=== PATIENT | male | born 1965 | race Caucasian/White ===

== ENCOUNTER 2018-01-19 15:48 | Inpatient (IN) ==
[2018-01-19] MEDS ORDERED: Ondansetron 4 MG/2 ML VIAL IVP PRN (20:41)
[2018-01-19] MEDS ORDERED: OXYCODONE Oral CONC 10 MG/0.5 ML ORAL.SYG SL PRN (20:43)
[2018-01-19] MEDS ORDERED: *HR* Promethazine 25 MG/ML VIAL IVP PRN (20:44)
[2018-01-19] MEDS: OXYCODONE Oral CONC 10 MG/0.5 ML ORAL.SYG SL PRN (20:53)
[2018-01-19] MEDS: 0.9 % Sodium Chloride 1,000 ML IVC SCH (20:56)
[2018-01-19] MEDS ORDERED: *HR* Metoprolol 5 MG/5 ML VIAL IVP PRN (23:02)
[2018-01-19] MEDS ORDERED: Naloxone 0.4 MG/ML INJ IVP PRN (23:02)
[2018-01-19] MEDS: cefOXitin 1,000 MG in Water for inj. (sterile) 20 ML 10 ML IVPB SCH (23:53)
[2018-01-20] MEDS: OXYCODONE Oral CONC 10 MG/0.5 ML ORAL.SYG SL PRN ×3 (01:01→14:17)
[2018-01-20] MEDS: 0.9 % Sodium Chloride 1,000 ML IVC SCH ×2 (04:53→15:29)
[2018-01-20] MEDS: Pantoprazole 40 MG VIAL IVP SCH (05:37)
[2018-01-20 06:01] LABS: Basophils % 0.3 %; Eosinophils # 0.1 K/mcL (0.0-0.6); Eosinophils % 0.8 %; Hematocrit 42.3 % (37.5-50.1); Immature Granulocytes % 0.3 % (0-4); Lymphocytes % 11.4 %; Mean Corpuscular HGB Conc 33.1 g/dL (31.6-35.5); Mean Corpuscular Hemoglobin 28.1 pg (28.0-33.3); Mean Corpuscular Volume 84.9 fL (83.0-100.0); Mean Platelet Volume 10.7 fL (9.4-12.4); Monocytes # 0.7 K/mcL (0.0-1.3); Monocytes % 7.7 %; Neutrophils # 7.2 K/mcL (1.6-8.9); Platelet Count 276 K/mcL (140-400); Red Blood Count 4.98 M/mcL (4.19-5.50); Red Cell Distribution Width 14.1 % (11.5-14.5); Segmented Neutrophils % 79.5 %
[2018-01-20 06:32] LABS: Alanine Aminotransferase 460 Units/L (7-52); Albumin 4.1 g/dL (3.5-5.7); Albumin/Globulin Ratio 1.5 (1.1-2.2); Alkaline Phosphatase 166 Units/L (34-104); Aspartate Amino Transferase 286 Units/L (13-39); BUN/Creatinine Ratio 13 (6-26); Bilirubin,Direct 0.4 mg/dL (0.0-0.2); Bilirubin,Indirect 1.3 mg/dL (0.0-1.2); Bilirubin,Total 1.7 mg/dL (0.3-1.0); Blood Urea Nitrogen 12 mg/dL (6-20); Calcium 9.1 mg/dL (8.6-10.3); Carbon Dioxide 27 mEq/L (23-29); Chloride 104 mEq/L (98-107); Glucose 155 mg/dL (70-105); Lipase 872 Units/L (11-82); Osmolality,Calculated 295 (280-300); Potassium 4.7 mEq/L (3.5-5.1); Sodium 141 mEq/L (136-145); Total Protein 6.8 g/dL (6.4-8.9); eGFR For African Americans > 60 (> 60); eGFR For Non-African Americans > 60 (> 60)
[2018-01-20 06:33] LABS: Globulin 2.7 g/dL (2.4-3.5)
[2018-01-20 07:33] LABS: Amylase 475 Units/L (29-103)
[2018-01-20 08:01] LABS: Chol/HDL Ratio 3.7 (0-4.9); Cholesterol 171 mg/dL (< 200); HDL Cholesterol 46 mg/dL (40-59); LDL Cholesterol,Calculated 99 mg/dL (0-99); Triglycerides 129 mg/dL (< 150)
[2018-01-20] MEDS: cefOXitin 1,000 MG in Water for inj. (sterile) 20 ML 10 ML IVPB SCH ×2 (08:28→15:29)
--- NOTE | 2018-01-20 09:42 | General Surg History&Physical ---
<Francisco JavierLincoln - Last Filed: 01/20/18 16:58> Date of Encounter: 01/20/18 Time of Encounter: 06:50 Assessment and Plan (1) Abdominal pain Current Visit: Yes Status: Acute MRCP shows evidence of acute pancreatits. Patient has a BISAP score of 0 for pancreatitis mortality. Patient will be on clear liquid diets for now, but will be changed to NPO diet tonight. Plan for possible cholecystectomy tomorrow. - NPO tonight. - Continue cefoxitin for antibiotic prophylaxis for cholelithiasis. - Serial abdominal exams. - Repeat AM labs including hep panel and lipase. - Continue pain medications. - Continue IV fluids. Abdomen MRI 01/20/18 07:46 IMPRESSION: Findings of acute pancreatitis are demonstrated. Cholelithiasis with mild gallbladder wall thickening. Pericholecystic fluid is noted, which may be related to acute pancreatitis. The possibility of acute cholecystitis should also be considered. No choledocholithiasis. No biliary dilatation. D/ / Michael Nuñez / Michael Nuñez Interpreting Provider: Michael Nuñez Qualifiers: Qualified Code(s): R10.11 - Right upper quadrant pain (2) Pancreatitis Current Visit: Yes Status: Acute See plan above. Qualifiers: Qualified Code(s): K85.90 - Acute pancreatitis without necrosis or infection , unspecified (3) Cholelithiasis Current Visit: Yes Status: Acute See plan for abdominal pain. Qualifiers: Cholelithiasis location: gallbladder Cholecystitis presence: without cholecystitis Biliary obstruction: without biliary obstruction Qualified Code(s): K80.20 - Calculus of gallbladder without cholecystitis without obstruction (4) Diabetes mellitus Current Visit: Yes Status: Acute Patient takes metformin at home.Glucose level 155 today. - Added low dose insulin sliding scale. Qualifiers: Diabetes mellitus type: type 2 Diabetes mellitus mcfp insulin use: without intermodal owner operator truck driver use Diabetes mellitus complication status: without complication Qualified Code(s): E11.9 - Type 2 diabetes mellitus without complications (5) DVT prophylaxis Current Visit: Yes Status: Acute Intermittent pneumatic compression devices. History of Present Illness Chief complaint: Abdominal pain. HPI: 52-year-old male with a PMH of DM II, GERD, pancreatitis (12 years ago) with a PSH of R inguinal hernia repair, umbilical hernia repair, B/L shoulder repair that presents for right upper quadrant pain in the abdomen. She states that she has been having pain on and off after eating for the past 8 months. He has been having pain since 5:30 in the morning yesterday that has been constant and severe, mostly in RUQ. Nausea but no vomiting. Stools have been different colors over the past 6 months. Denies melena or hematochezia. No fever or chills. No history of alcohol abuse. 7.5 pack years of smoking. Denies any trauma. He currently admits to moderate diffuse abdominal pain most prominent in the right upper quadrant. Admits to nausea and vomiting since last night. Denies any hematemesis. No bowel movement since admission but has been passing gas. Past Med Surg Social Fam HX - Past Medical History Medical history: diabetes, GERD, other Psychiatric history: no psych history - Social History Smoking Status: Current every day smoker Smokeless Tobacco Status: No Alcohol use: rarely Drug use: none Medications and Allergies Metformin HCl [Glucophage] 1,000 mg PO BID 01/20/18 [History] Pregabalin [Lyrica] 100 mg PO TID 01/20/18 [History] Tramadol HCl [Ultram] 50 mg PO QID PRN 01/20/18 [History] 3 Allergy/AdvReac Type Severity Reaction Status Date / Time No Known Allergies Allergy Verified 01/19/18 12:47 Review of Systems All systems PM: The remainder of the systems were reviewed and are negative - Constitutional as per HPI - Cardiovascular as per HPI - Respiratory as per HPI - Gastrointestinal as per HPI General Surgery Exam VITAL SIGNS: Reviewed. See [facility] GENERAL: No aparrent distress. HEENT: [Normocephalic, PER, EOMi, oropharynx pink/moist, no JVD noted.] CV: b/l rad pulses 2+, RRR, no murmurs or gallops, no JVD RESPIRATORY: CTAB without wheezes, rales, or rhonchi ABD: Negative Castano's sign. Moderate diffuse abdominal discomfort with the worst being in the right upper quadrant. Negative McBurney sign EXTREMITY: grossly normal motor function, no pedal edema, peripheral pulses 2+ b /l NEUROLOGIC EXAM: AOx3, obeys commands, no speech deficits. PSYCHIATRIC: normal mood and affect SKIN: no gross lesions, rashes, or skin changes Initial Vital Signs Temp Pulse Resp BP Pulse Ox 98.3 F 62 14 122/75 97 01/19/18 19:03 01/19/18 19:03 01/19/18 19:03 01/19/18 19:03 01/19/18 19:03 Results - Labs 01/20/18 04:52 01/20/18 04:52 Abnormal lab results Glucose 155 mg/dL (70-105) H 01/20/18 04:52 POC Glucose 125 mg/dL (70-99) H 01/20/18 05:45 Total Bilirubin 1.7 mg/dL (0.3-1.0) H 01/20/18 04:52 Direct Bilirubin 0.4 mg/dL (0.0-0.2) H 01/20/18 04:52 Indirect Bilirubin 1.3 mg/dL (0.0-1.2) H 01/20/18 04:52 AST 286 Units/L (13-39) H 01/20/18 04:52 ALT 460 Units/L (7-52) H 01/20/18 04:52 Alkaline Phosphatase 166 Units/L (34-104) H 01/20/18 04:52 Amylase 475 Units/L (29-103) H 01/20/18 04:52 Lipase 872 Units/L (11-82) H 01/20/18 04:52 Diabetes panel 01/20/18 Range/Units 04:52 Sodium 141 (136-145) mEq/L Potassium 4.7 (3.5-5.1) mEq/L Chloride 104 (98-107) mEq/L Carbon Dioxide 27 (23-29) mEq/L BUN 12 (6-20) mg/dL Creatinine 0.90 (0.70-1.30) mg/dL Glucose 155 H (70-105) mg/dL Calcium 9.1 (8.6-10.3) mg/dL AST 286 H (13-39) Units/L ALT 460 H (7-52) Units/L Alkaline Phosphatase 166 H (34-104) Units/L Albumin 4.1 (3.5-5.7) g/dL Triglycerides 129 (< 150) mg/dL HDL Cholesterol 46 (40-59) mg/dL Calcium panel 01/20/18 Range/Units 04:52 Calcium 9.1 (8.6-10.3) mg/dL Albumin 4.1 (3.5-5.7) g/dL Pituitary panel 01/20/18 Range/Units 04:52 Sodium 141 (136-145) mEq/L Potassium 4.7 (3.5-5.1) mEq/L Chloride 104 (98-107) mEq/L Carbon Dioxide 27 (23-29) mEq/L BUN 12 (6-20) mg/dL Creatinine 0.90 (0.70-1.30) mg/dL Glucose 155 H (70-105) mg/dL Calcium 9.1 (8.6-10.3) mg/dL Adrenal panel 01/20/18 Range/Units 04:52 Sodium 141 (136-145) mEq/L Potassium 4.7 (3.5-5.1) mEq/L Chloride 104 (98-107) mEq/L Carbon Dioxide 27 (23-29) mEq/L BUN 12 (6-20) mg/dL Creatinine 0.90 (0.70-1.30) mg/dL Glucose 155 H (70-105) mg/dL Calcium 9.1 (8.6-10.3) mg/dL Total Bilirubin 1.7 H (0.3-1.0) mg/dL AST 286 H (13-39) Units/L ALT 460 H (7-52) Units/L Alkaline Phosphatase 166 H (34-104) Units/L Albumin 4.1 (3.5-5.7) g/dL All other labs normal. <Yajaira Negrete - Last Filed: 01/20/18 17:59> Date of Encounter: 01/20/18 Time of Encounter: 14:45 Assessment and Plan (1) Gallstone pancreatitis Current Visit: Yes Status: Acute The assessment and plan as outlined above was discussed with the patient and/or family members who expressed understanding and agreement. All questions were answered. discussed with patient and his family that he has gallstones and pancreatitis, is no a drinker, takes almost no medication, has had pancreatitis in the past, and lipid panel is normal and therefore his pancreatitis is likely caused by his gallstones. discussed conservative therapy for the pancreatitis but removing his gallbladder , the source of the gallstones, prior to discharge will continue ivf hydration ok clears prn pain control gi/dvt prophylasix serial abdominal exams prn antiemetics once amylase and lipase decrease to an appropriate level will plan cholecystectomy due to elevated lft's mrcp was done - no CBD obstruction (2) DVT prophylaxis Current Visit: Yes Status: Acute The assessment and plan as outlined above was discussed with the patient and/or family members who expressed understanding and agreement. All questions were answered. (3) Diabetes mellitus Current Visit: Yes Status: Acute The assessment and plan as outlined above was discussed with the patient and/or family members who expressed understanding and agreement. All questions were answered. Qualifiers: Diabetes mellitus type: type 2 Diabetes mellitus mcfp insulin use: without intermodal owner operator truck driver use Diabetes mellitus complication status: without complication Qualified Code(s): E11.9 - Type 2 diabetes mellitus without complications (4) Elevated LFTs Current Visit: Yes Status: Acute The assessment and plan as outlined above was discussed with the patient and/or family members who expressed understanding and agreement. All questions were answered. mrcp negative for cbd obstruction or choledocholithiasis trend lfts History of Present Illness HPI: Mr. Beasley is a 52 year old male who presented to [place] ED yesterday with complaints of RUQ abdominal pain, sharp. Patient has had similar episodes of pain over the last 8 months but they usually last less than 2 hours. This time his pain was unrelenting pain which brought him to ED. He has nausea but no emesis. Patient has had pancreatitis in the past and does state this pain is similar to that episode which concerned him and is also why he presented to the ed. Patient denies alcohol use Past Med Surg Social Fam HX - Past Medical History Source: patient Medical history: diabetes, GERD, other (history pancreatitis) Psychiatric history: no psych history - Past Surgical History Surgical History: herniorrhaphy ( RIHR, UHR), orthopedic, other (bilateral shoulder surgery), other (colonoscopy) Review of Systems All systems PM: reviewed and no additional remarkable complaints except as stated All systems PM: The remainder of the systems were reviewed and are negative General Surgery Exam Initial Vital Signs Temp Pulse Resp BP Pulse Ox 98.3 F 62 14 122/75 97 01/19/18 19:03 01/19/18 19:03 01/19/18 19:03 01/19/18 19:03 01/19/18 19:03 - General physical appearance well nourished, no distress - Eyes PERRL, normal ocular movement - ENT normal mucosa, normocephalic - Neck trachea midline - Respiratory normal expansion, normal respiratory effort - Cardiovascular Cardiovascular exam: Present: RRR - Abdomen Abdomen general surgery: Present: soft, tender. Absent: distended, guarding, rebound Abdominal Tenderness: Present: epigastic, RUQ - Integumentary Integumentary general surgery: Present: warm and dry, no abnormal pigmentation - Neurologic Present: CN 2-12 grossly intact - Musculoskeletal Present: normal posture - Psychiatric Psychiatric general surgery: Present: A&Ox3, speech is normal Results - Labs 01/20/18 04:52 01/20/18 04:52 Abnormal lab results Glucose 155 mg/dL (70-105) H 01/20/18 04:52 POC Glucose 148 mg/dL (70-99) H 01/20/18 17:02 Total Bilirubin 1.7 mg/dL (0.3-1.0) H 01/20/18 04:52 Direct Bilirubin 0.4 mg/dL (0.0-0.2) H 01/20/18 04:52 Indirect Bilirubin 1.3 mg/dL (0.0-1.2) H 01/20/18 04:52 AST 286 Units/L (13-39) H 01/20/18 04:52 ALT 460 Units/L (7-52) H 01/20/18 04:52 Alkaline Phosphatase 166 Units/L (34-104) H 01/20/18 04:52 Amylase 475 Units/L (29-103) H 01/20/18 04:52 Lipase 872 Units/L (11-82) H 01/20/18 04:52 Diabetes panel 01/20/18 Range/Units 04:52 Sodium 141 (136-145) mEq/L Potassium 4.7 (3.5-5.1) mEq/L Chloride 104 (98-107) mEq/L Carbon Dioxide 27 (23-29) mEq/L BUN 12 (6-20) mg/dL Creatinine 0.90 (0.70-1.30) mg/dL Glucose 155 H (70-105) mg/dL Calcium 9.1 (8.6-10.3) mg/dL AST 286 H (13-39) Units/L ALT 460 H (7-52) Units/L Alkaline Phosphatase 166 H (34-104) Units/L Albumin 4.1 (3.5-5.7) g/dL Triglycerides 129 (< 150) mg/dL HDL Cholesterol 46 (40-59) mg/dL Calcium panel 01/20/18 Range/Units 04:52 Calcium 9.1 (8.6-10.3) mg/dL Albumin 4.1 (3.5-5.7) g/dL Pituitary panel 01/20/18 Range/Units 04:52 Sodium 141 (136-145) mEq/L Potassium 4.7 (3.5-5.1) mEq/L Chloride 104 (98-107) mEq/L Carbon Dioxide 27 (23-29) mEq/L BUN 12 (6-20) mg/dL Creatinine 0.90 (0.70-1.30) mg/dL Glucose 155 H (70-105) mg/dL Calcium 9.1 (8.6-10.3) mg/dL Adrenal panel 01/20/18 Range/Units 04:52 Sodium 141 (136-145) mEq/L Potassium 4.7 (3.5-5.1) mEq/L Chloride 104 (98-107) mEq/L Carbon Dioxide 27 (23-29) mEq/L BUN 12 (6-20) mg/dL Creatinine 0.90 (0.70-1.30) mg/dL Glucose 155 H (70-105) mg/dL Calcium 9.1 (8.6-10.3) mg/dL Total Bilirubin 1.7 H (0.3-1.0) mg/dL AST 286 H (13-39) Units/L ALT 460 H (7-52) Units/L Alkaline Phosphatase 166 H (34-104) Units/L Albumin 4.1 (3.5-5.7) g/dL All other labs normal. - Imaging CT scan - abdomen: report reviewed, image reviewed CT scan - pelvis: report reviewed, image reviewed - Attending Attestation I examined this patient and my medical decision-making was reviewed with the Resident Physician. I agree with the documented findings, disposition and treatment plan as described except to the extent set forth below.
[2018-01-20] MEDS ORDERED: OXYCODONE Oral CONC 10 MG/0.5 ML ORAL.SYG SL PRN (11:52)
[2018-01-20] MEDS ORDERED: Dextrose Gel 15 GM/37.5 ML TUBE PO PRN ×2 (11:55)
[2018-01-20] MEDS ORDERED: *HR* Dextrose 50 % in Water (Syg) 50 ML SYRINGE IVP PRN (11:55)
[2018-01-20] MEDS ORDERED: D5% in Water 1,000 ML IVC PRN (11:55)
[2018-01-20] MEDS: *HR* FentaNYL (PF) 100 MCG/2 ML VIAL IVP PRN ×2 (12:18→21:00)
[2018-01-20] MEDS: Insulin LISPRO 300 UNITS/3 ML VIAL SQ SCH ×2 (12:18→18:17)
[2018-01-20] MEDS: *HR* Metoprolol 5 MG/5 ML VIAL IVP SCH (15:30)
[2018-01-20] MEDS: Ketorolac 15 MG/ML VIAL IVP SCH (16:51)
[2018-01-21] MEDS: cefOXitin 1,000 MG in Water for inj. (sterile) 20 ML 10 ML IVPB SCH ×3 (00:01→20:30)
[2018-01-21] MEDS: Ketorolac 15 MG/ML VIAL IVP SCH ×4 (00:05→20:31)
[2018-01-21] MEDS: Insulin LISPRO 300 UNITS/3 ML VIAL SQ SCH ×4 (00:09→19:33)
[2018-01-21] MEDS: Pantoprazole 40 MG VIAL IVP SCH ×2 (05:43→08:32)
[2018-01-21 05:44] LABS: Basophils % 0.4 %; Eosinophils # 0.2 K/mcL (0.0-0.6); Eosinophils % 1.9 %; Hematocrit 38.4 % (37.5-50.1); Hemoglobin 12.5 g/dL (12.9-16.9); Immature Granulocytes % 0.3 % (0-4); Lymphocytes # 1.6 K/mcL (0.6-4.6); Lymphocytes % 14.7 %; Mean Corpuscular HGB Conc 32.6 g/dL (31.6-35.5); Mean Corpuscular Hemoglobin 27.8 pg (28.0-33.3); Mean Corpuscular Volume 85.3 fL (83.0-100.0); Mean Platelet Volume 10.2 fL (9.4-12.4); Monocytes # 0.9 K/mcL (0.0-1.3); Monocytes % 8.5 %; Neutrophils # 8.1 K/mcL (1.6-8.9); Platelet Count 250 K/mcL (140-400); Red Cell Distribution Width 13.8 % (11.5-14.5); Segmented Neutrophils % 74.2 %
[2018-01-21 06:00] LABS: Alanine Aminotransferase 262 Units/L (7-52); Albumin 3.9 g/dL (3.5-5.7); Albumin/Globulin Ratio 1.4 (1.1-2.2); Alkaline Phosphatase 138 Units/L (34-104); Amylase 178 Units/L (29-103); Aspartate Amino Transferase 74 Units/L (13-39); BUN/Creatinine Ratio 15 (6-26); Bilirubin,Direct 0.2 mg/dL (0.0-0.2); Bilirubin,Indirect 1.3 mg/dL (0.0-1.2); Bilirubin,Total 1.5 mg/dL (0.3-1.0); Blood Urea Nitrogen 10 mg/dL (6-20); Carbon Dioxide 25 mEq/L (23-29); Chloride 106 mEq/L (98-107); Globulin 2.7 g/dL (2.4-3.5); Glucose 146 mg/dL (70-105); Lipase 204 Units/L (11-82); Osmolality,Calculated 286 (280-300); Sodium 137 mEq/L (136-145); Total Protein 6.6 g/dL (6.4-8.9); eGFR For African Americans > 60 (> 60); eGFR For Non-African Americans > 60 (> 60)
--- NOTE | 2018-01-21 07:38 | General Surgery Progress Note ---
<Francisco JavierLincoln - Last Filed: 01/21/18 12:57> Date of Encounter: 01/21/18 Time of Encounter: 07:30 - Assessment and Plan (1) Pancreatitis Current Visit: Yes Status: Acute Amylase levels dropped from 475-178. Lipase dropped from 872-204. BUN level dropped from 12-10. Patient afebrile overnight. CBC at 10.8. T bili dropped from 1.7-1.5. Alkaline phosphatase dropped from 166-138. BISAP score 0. - Plan for cholecystectomy tomorrow. - Clear liquid diet for now but NPO at midnight. - Continue cefoxitin for antibiotic prophylaxis for cholecystitis. - Serial abdominal exams. - Repeat AM labs including hep panel and lipase. - Continue pain medications. - Continue IV fluids. Abdomen MRI 01/20/18 07:46 IMPRESSION: Findings of acute pancreatitis are demonstrated. Cholelithiasis with mild gallbladder wall thickening. Pericholecystic fluid is noted, which may be related to acute pancreatitis. The possibility of acute cholecystitis should also be considered. No choledocholithiasis. No biliary dilatation. D/ / Michael Nuñez / Michael Nuñez Interpreting Provider: Michael Nuñez Qualifiers: Chronicity: acute Pancreatitis type: unspecified pancreatitis type Acute pancreatitis complication: unspecified Qualified Code(s): K85.90 - Acute pancreatitis without necrosis or infection, unspecified (2) Cholelithiasis Current Visit: Yes Status: Acute Qualifiers: Cholelithiasis location: gallbladder Cholecystitis presence: without cholecystitis Biliary obstruction: without biliary obstruction Qualified Code(s): K80.20 - Calculus of gallbladder without cholecystitis without obstruction (3) Diabetes mellitus Current Visit: Yes Status: Acute Glucose level at 98. - Continue low dose insulin sliding scale. 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 He denies any bowel movements but admits to passing gas. He denies any chest pain or shortness of breath. Denies any nausea or vomiting. Objective VITAL SIGNS: Reviewed. See [facility] GENERAL: No apparent distress. HEENT: [Normocephalic, PER, EOMi, oropharynx pink/moist, no JVD noted.] CV: b/l rad pulses 2+, RRR, no murmurs or gallops, no JVD RESPIRATORY: CTAB without wheezes, rales, or rhonchi ABD: soft, mild tenderness to RUQ, no rebound/guarding/rigidity, no peritoneal signs. Bowel sounds normal. EXTREMITY: grossly normal motor function, no pedal edema, peripheral pulses 2+ b /l NEUROLOGIC EXAM: AOx3, obeys commands, no speech deficits. PSYCHIATRIC: normal mood and affect SKIN: no gross lesions, rashes, or skin changes Vital Signs - Last 8 Hours Temp Pulse Resp BP Pulse Ox 01/21/18 06:57 98.2 F 64 16 132/72 98 01/21/18 05:15 98.3 F 67 14 137/69 98 01/21/18 00:07 170/91 Intake and Output 01/20/18 01/20/18 01/21/18 15:59 23:59 07:59 Intake Total 1020 / 1020 1060 / 1060 10 / 10 Output Total 300 / 300 1050 / 1050 Balance 1020 / 1020 760 / 760 -1040 / -1040 Intake: IV Fluids 1020 / 1020 1000 / 1000 10 / 10 0.9 % Sodium Chloride 1,000 ML 1000 / 1000 1000 / 1000 @ 120 mls/hr IVC .Q8H20M [facility] Rx #:[id number] Mefoxin 1,000 MG In Water for 10 / 10 inj. (sterile) 10 ML @ 150 mls/ hr IVPB Q8HR [facility] Rx#:[id number] Oral 60 / 60 0 / 0 Output: Urine 300 / 300 1050 / 1050 Other: Meal NPO BREAKFAST Weight 82.1 kg Blood Glucose* 119 148 147 Patient Weight 01/21/18 23:59 Weight 82.1 kg - Labs 01/21/18 05:25 01/21/18 05:25 Diabetes panel 01/20/18 01/21/18 Range/Units 04:52 05:25 Sodium 141 137 (136-145) mEq/L Potassium 4.7 4.0 (3.5-5.1) mEq/L Chloride 104 106 (98-107) mEq/L Carbon Dioxide 27 25 (23-29) mEq/L BUN 12 10 (6-20) mg/dL Creatinine 0.90 0.68 L (0.70-1.30) mg/dL Glucose 155 H 146 H (70-105) mg/dL Calcium 9.1 9.0 (8.6-10.3) mg/dL AST 286 H 74 H (13-39) Units/L ALT 460 H 262 H (7-52) Units/L Alkaline Phosphatase 166 H 138 H (34-104) Units/L Albumin 4.1 3.9 (3.5-5.7) g/dL Triglycerides 129 (< 150) mg/dL HDL Cholesterol 46 (40-59) mg/dL Calcium panel 01/20/18 01/21/18 Range/Units 04:52 05:25 Calcium 9.1 9.0 (8.6-10.3) mg/dL Albumin 4.1 3.9 (3.5-5.7) g/dL Pituitary panel 01/20/18 01/21/18 Range/Units 04:52 05:25 Sodium 141 137 (136-145) mEq/L Potassium 4.7 4.0 (3.5-5.1) mEq/L Chloride 104 106 (98-107) mEq/L Carbon Dioxide 27 25 (23-29) mEq/L BUN 12 10 (6-20) mg/dL Creatinine 0.90 0.68 L (0.70-1.30) mg/dL Glucose 155 H 146 H (70-105) mg/dL Calcium 9.1 9.0 (8.6-10.3) mg/dL Adrenal panel 01/20/18 01/21/18 Range/Units 04:52 05:25 Sodium 141 137 (136-145) mEq/L Potassium 4.7 4.0 (3.5-5.1) mEq/L Chloride 104 106 (98-107) mEq/L Carbon Dioxide 27 25 (23-29) mEq/L BUN 12 10 (6-20) mg/dL Creatinine 0.90 0.68 L (0.70-1.30) mg/dL Glucose 155 H 146 H (70-105) mg/dL Calcium 9.1 9.0 (8.6-10.3) mg/dL Total Bilirubin 1.7 H 1.5 H (0.3-1.0) mg/dL AST 286 H 74 H (13-39) Units/L ALT 460 H 262 H (7-52) Units/L Alkaline Phosphatase 166 H 138 H (34-104) Units/L Albumin 4.1 3.9 (3.5-5.7) g/dL Consult Discharge Plan - Plan Referrals: Austyn Marcano, N[employer] MANAGER [Primary Care Provider] - <Yajaira Negrete - Last Filed: 01/22/18 09:41> Date of Encounter: 01/21/18 - Assessment and Plan (1) Gallstone pancreatitis Current Visit: Yes Status: Acute patient with gallstone pancreatitis clears today, npo midnight plan for laparoscopic cholecystectomy tomorrow prn pain control prn antiemetics gi/dvt prophylaxis (2) DVT prophylaxis Current Visit: Yes Status: Acute (3) Diabetes mellitus Current Visit: Yes Status: Acute controlled, monitor Qualifiers: Diabetes mellitus type: type 2 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 mellitus intermediate school teacher insulin use: without fci use Diabetes mellitus complication status: without complication Qualified Code(s): E11.9 - Type 2 diabetes mellitus without complications (4) Elevated LFTs Current Visit: Yes Status: Acute trending down, monitor Subjective Patient reports: still having pain, pain is less, tolerating liquids well, flatus Objective Vital Signs - Last 8 Hours Temp Pulse Resp BP Pulse Ox 01/22/18 07:00 97.8 F 65 14 117/71 100 01/22/18 05:25 97.7 F 60 14 120/77 98 Intake and Output 01/21/18 01/22/18 01/22/18 23:59 07:59 15:59 Intake Total 1610 / 1610 1020 / 1020 0 / 0 Output Total 300 / 300 850 / 850 Balance 1310 / 1310 170 / 170 0 / 0 Intake: IV Fluids 1010 / 1010 1020 / 1020 0.9 % Sodium Chloride 1,000 ML 1000 / 1000 1000 / 1000 @ 120 mls/hr IVC .Q8H20M [facility] Rx #:[id number] Mefoxin 1,000 MG In Water for inj. (sterile) 10 ML @ 150 mls/ hr IVPB Q8HR [facility] Rx#:[id number] Oral 600 / 600 0 / 0 0 / 0 Output: Urine 300 / 300 850 / 850 Other: Meal Dinner Breakfast NPO Blood Glucose* 126 117 - General physical appearance well developed, well nourished, no distress - Eyes PERRL, normal ocular movement - ENT normal mucosa, normocephalic - Neck Neck exam: trachea midline - Respiratory normal expansion, normal respiratory effort - Cardiovascular Cardiovascular exam: Present: RRR - Abdomen Abdomen: Present: bowel sounds present, soft, tender. Absent: distended, guarding, rebound Abdominal Tenderness: epigastic, RUQ - Integumentary no growths - Neurologic CN 2-12 grossly intact - Musculoskeletal normal posture - Psychiatric oriented to time, oriented to person, oriented to place, speech is normal, memory intact - Labs 01/22/18 05:33 01/22/18 05:33 Diabetes panel 01/22/18 Range/Units 05:33 Sodium 141 (136-145) mEq/L Potassium 3.4 L (3.5-5.1) mEq/L Chloride 109 H (98-107) mEq/L Carbon Dioxide 23 (23-29) mEq/L BUN 8 (6-20) mg/dL Creatinine 0.60 L (0.70-1.30) mg/dL Glucose 127 H (70-105) mg/dL Calcium 8.6 (8.6-10.3) mg/dL AST 28 (13-39) Units/L ALT 153 H (7-52) Units/L Alkaline Phosphatase 96 (34-104) Units/L Albumin 3.4 L (3.5-5.7) g/dL Calcium panel 01/22/18 Range/Units 05:33 Calcium 8.6 (8.6-10.3) mg/dL Albumin 3.4 L (3.5-5.7) g/dL Pituitary panel 01/22/18 Range/Units 05:33 Sodium 141 (136-145) mEq/L Potassium 3.4 L (3.5-5.1) mEq/L Chloride 109 H (98-107) mEq/L Carbon Dioxide 23 (23-29) mEq/L BUN 8 (6-20) mg/dL Creatinine 0.60 L (0.70-1.30) mg/dL Glucose 127 H (70-105) mg/dL Calcium 8.6 (8.6-10.3) mg/dL Adrenal panel 01/22/18 Range/Units 05:33 Sodium 141 (136-145) mEq/L Potassium 3.4 L (3.5-5.1) mEq/L Chloride 109 H (98-107) mEq/L Carbon Dioxide 23 (23-29) mEq/L BUN 8 (6-20) mg/dL Creatinine 0.60 L (0.70-1.30) mg/dL Glucose 127 H (70-105) mg/dL Calcium 8.6 (8.6-10.3) mg/dL Total Bilirubin 1.0 (0.3-1.0) mg/dL AST 28 (13-39) Units/L ALT 153 H (7-52) Units/L Alkaline Phosphatase 96 (34-104) Units/L Albumin 3.4 L (3.5-5.7) g/dL - Attending Attestation I examined this patient and my medical decision-making was reviewed with the Resident Physician. I agree with the documented findings, disposition and treatment plan as described except to the extent set forth below.
[2018-01-21] MEDS: 0.9 % Sodium Chloride 1,000 ML IVC SCH ×3 (08:31→20:31)
[2018-01-21] MEDS: *HR* FentaNYL (PF) 100 MCG/2 ML VIAL IVP PRN ×3 (08:33→23:22)
[2018-01-21] MEDS: *HR* Metoprolol 5 MG/5 ML VIAL IVP SCH (18:27)
[2018-01-21] MEDS: OXYCODONE Oral CONC 10 MG/0.5 ML ORAL.SYG SL PRN (19:28)
[2018-01-22] MEDS: Insulin LISPRO 300 UNITS/3 ML VIAL SQ SCH ×4 (00:22→17:47)
[2018-01-22] MEDS: cefOXitin 1,000 MG in Water for inj. (sterile) 20 ML 10 ML IVPB SCH ×4 (00:28→23:23)
[2018-01-22] MEDS: Ketorolac 15 MG/ML VIAL IVP SCH ×5 (00:29→23:24)
[2018-01-22] MEDS: 0.9 % Sodium Chloride 1,000 ML IVC SCH ×3 (04:30→21:31)
[2018-01-22] MEDS: Pantoprazole 40 MG VIAL IVP SCH (06:14)
[2018-01-22 06:32] LABS: Basophils % 0.4 %; Eosinophils # 0.5 K/mcL (0.0-0.6); Eosinophils % 6.2 %; Hematocrit 34.2 % (37.5-50.1); Hemoglobin 11.3 g/dL (12.9-16.9); Immature Granulocytes % 0.7 % (0-4); Immature Platelets 4.8 % (1.1-6.1); Lymphocytes # 1.8 K/mcL (0.6-4.6); Lymphocytes % 22.3 %; Mean Corpuscular Volume 84.9 fL (83.0-100.0); Mean Platelet Volume 10.4 fL (9.4-12.4); Monocytes # 0.8 K/mcL (0.0-1.3); Monocytes % 9.6 %; Platelet Count 220 K/mcL (140-400); Red Blood Count 4.03 M/mcL (4.19-5.50); Red Cell Distribution Width 13.3 % (11.5-14.5); Segmented Neutrophils % 60.8 %
[2018-01-22 06:36] LABS: Alanine Aminotransferase 153 Units/L (7-52); Albumin 3.4 g/dL (3.5-5.7); Albumin/Globulin Ratio 1.4 (1.1-2.2); Alkaline Phosphatase 96 Units/L (34-104); Aspartate Amino Transferase 28 Units/L (13-39); BUN/Creatinine Ratio 13 (6-26); Bilirubin,Direct 0.2 mg/dL (0.0-0.2); Bilirubin,Indirect 0.8 mg/dL (0.0-1.2); Blood Urea Nitrogen 8 mg/dL (6-20); Calcium 8.6 mg/dL (8.6-10.3); Carbon Dioxide 23 mEq/L (23-29); Chloride 109 mEq/L (98-107); Globulin 2.4 g/dL (2.4-3.5); Glucose 127 mg/dL (70-105); Osmolality,Calculated 292 (280-300); Potassium 3.4 mEq/L (3.5-5.1); Sodium 141 mEq/L (136-145); Total Protein 5.8 g/dL (6.4-8.9); eGFR For African Americans > 60 (> 60); eGFR For Non-African Americans > 60 (> 60)
[2018-01-22] MEDS: *HR* FentaNYL (PF) 100 MCG/2 ML VIAL IVP PRN ×3 (07:46→20:16)
--- NOTE | 2018-01-22 14:30 | General Surgery Progress Note ---
<Francisco JavierLincoln - Last Filed: 01/22/18 14:43> Date of Encounter: 01/22/18 Time of Encounter: 07:30 - Assessment and Plan (1) Pancreatitis Current Visit: Yes Status: Acute Lipase dropped from 204 to 34. BUN level dropped from 10 to 8. Patient afebrile overnight. WBC at 8.2. T bili dropped from 1.5 to 1. Alkaline phosphatase dropped from 138 to 96. BISAP score 0. - Plan for cholecystectomy tomorrow. - Clear liquid diet. NPO at midnight. - Continue cefoxitin for antibiotic prophylaxis for cholecystitis. - Serial abdominal exams. - Repeat AM labs including hep panel and lipase. - Continue pain medications. - Continue IV fluids. Abdomen MRI 01/20/18 07:46 IMPRESSION: Findings of acute pancreatitis are demonstrated. Cholelithiasis with mild gallbladder wall thickening. Pericholecystic fluid is noted, which may be related to acute pancreatitis. The possibility of acute cholecystitis should also be considered. No choledocholithiasis. No biliary dilatation. D/ / Michael Nuñez / Michael Nuñez Interpreting Provider: Michael Nuñez Qualifiers: Chronicity: acute Pancreatitis type: unspecified pancreatitis type Acute pancreatitis complication: unspecified Qualified Code(s): K85.90 - Acute pancreatitis without necrosis or infection, unspecified (2) Cholelithiasis Current Visit: Yes Status: Acute Qualifiers: Cholelithiasis location: gallbladder Cholecystitis presence: without cholecystitis Biliary obstruction: without biliary obstruction Qualified Code(s): K80.20 - Calculus of gallbladder without cholecystitis without obstruction (3) Diabetes mellitus Current Visit: Yes Status: Acute Glucose level at 127. - Continue low dose insulin sliding scale. Qualifiers: Diabetes mellitus type: type 2 Diabetes mellitus penitentiary insulin use: without penitentiary use Diabetes mellitus complication status: without complication Qualified Code(s): E11.9 - Type 2 diabetes mellitus without complications (4) DVT prophylaxis Current Visit: Yes Status: Acute Intermittent pneumatic compression devices Subjective Narrative: Patient says pain in his right upper quadrant has improved since yesterday. He admits to bowel movements. Denies any melena or hematochezia. Denies any chest pain or shortness of breath. Denies any fever or chills Objective VITAL SIGNS: Reviewed. See [facility] GENERAL: no apparent distress HEENT: [Normocephalic, PER, EOMi, oropharynx pink/moist, no JVD noted.] CV: b/l rad pulses 2+, RRR, no murmurs or gallops, no JVD RESPIRATORY: CTAB without wheezes, rales, or rhonchi ABD: soft, mild tenderness to palpation of RUQ, no rebound/guarding/rigidity, no peritoneal signs. Normal bowels sounds. Negative panchal's sign. EXTREMITY: grossly normal motor function, no pedal edema, peripheral pulses 2+ b /l NEUROLOGIC EXAM: AOx3, obeys commands, no speech deficits. PSYCHIATRIC: normal mood and affect SKIN: no gross lesions, rashes, or skin changes Vital Signs - Last 8 Hours Temp Pulse Resp BP Pulse Ox 01/22/18 11:00 98.0 F 58 16 123/68 98 01/22/18 07:00 97.8 F 65 14 117/71 100 Intake and Output 01/21/18 01/22/18 01/22/18 23:59 07:59 15:59 Intake Total 1610 / 1610 1020 / 1020 1000 / 1000 Output Total 300 / 300 850 / 850 150 / 150 Balance 1310 / 1310 170 / 170 850 / 850 Intake: IV Fluids 1010 / 1010 1020 / 1020 1000 / 1000 0.9 % Sodium Chloride 1,000 ML 1000 / 1000 1000 / 1000 1000 / 1000 @ 120 mls/hr IVC .Q8H20M [facility] Rx #:[id number] Mefoxin 1,000 MG In Water for 20 inj. (sterile) 10 ML @ 150 mls/ hr IVPB Q8HR [facility] Rx#:[id number] Oral 600 / 600 0 / 0 0 / 0 Output: Urine 300 / 300 850 / 850 150 / 150 Other: Meal Dinner NPO Lunch Blood Glucose* 126 117 122 - Labs 01/22/18 05:33 01/22/18 05:33 Diabetes panel 01/22/18 Range/Units 05:33 Sodium 141 (136-145) mEq/L Potassium 3.4 L (3.5-5.1) mEq/L Chloride 109 H (98-107) mEq/L Carbon Dioxide 23 (23-29) mEq/L BUN 8 (6-20) mg/dL Creatinine 0.60 L (0.70-1.30) mg/dL Glucose 127 H (70-105) mg/dL Calcium 8.6 (8.6-10.3) mg/dL AST 28 (13-39) Units/L ALT 153 H (7-52) Units/L Alkaline Phosphatase 96 (34-104) Units/L Albumin 3.4 L (3.5-5.7) g/dL Calcium panel 01/22/18 Range/Units 05:33 Calcium 8.6 (8.6-10.3) mg/dL Albumin 3.4 L (3.5-5.7) g/dL Pituitary panel 01/22/18 Range/Units 05:33 Sodium 141 (136-145) mEq/L Potassium 3.4 L (3.5-5.1) mEq/L Chloride 109 H (98-107) mEq/L Carbon Dioxide 23 (23-29) mEq/L BUN 8 (6-20) mg/dL Creatinine 0.60 L (0.70-1.30) mg/dL Glucose 127 H (70-105) mg/dL Calcium 8.6 (8.6-10.3) mg/dL Adrenal panel 01/22/18 Range/Units 05:33 Sodium 141 (136-145) mEq/L Potassium 3.4 L (3.5-5.1) mEq/L Chloride 109 H (98-107) mEq/L Carbon Dioxide 23 (23-29) mEq/L BUN 8 (6-20) mg/dL Creatinine 0.60 L (0.70-1.30) mg/dL Glucose 127 H (70-105) mg/dL Calcium 8.6 (8.6-10.3) mg/dL Total Bilirubin 1.0 (0.3-1.0) mg/dL AST 28 (13-39) Units/L ALT 153 H (7-52) Units/L Alkaline Phosphatase 96 (34-104) Units/L Albumin 3.4 L (3.5-5.7) g/dL Consult Discharge Plan - Plan Referrals: Austyn Marcano, JAPANESE TUTOR [Primary Care Provider] - <Yajaira Negrete - Last Filed: 01/23/18 12:43> Date of Encounter: 01/22/18 - Assessment and Plan (1) Gallstone pancreatitis Current Visit: Yes Status: Acute pancreatitis labs normal today pain essentially resolved due to OR schedule and emergency cases will be unable to go to OR today ok for clears prn pain control will plan laparoscopic cholecystectomy, cholangiograms, possible open tomorrow (2) DVT prophylaxis Current Visit: Yes Status: Acute (3) Diabetes mellitus Current Visit: Yes Status: Acute controlled, continue low dose SSI Qualifiers: Diabetes mellitus type: type 2 Diabetes mellitus terminal manager insulin use: without penitentiary use Diabetes mellitus complication status: without complication Qualified Code(s): E11.9 - Type 2 diabetes mellitus without complications (4) Elevated LFTs Current Visit: Yes Status: Acute normal today Subjective Patient reports: no new complaints, feels better, tolerating liquids well, flatus, no bowel movement Objective Vital Signs - Last 8 Hours Temp Pulse Resp BP Pulse Ox 01/23/18 11:15 98.3 F 60 18 136/79 98 01/23/18 06:35 98.2 F 58 16 120/70 100 Intake and Output 01/22/18 01/23/18 01/23/18 23:59 07:59 15:59 Intake Total 1730 / 1730 1010 / 1010 Output Total 1425 / 1425 1450 / 1450 Balance 305 / 305 -440 / -440 Intake: IV Fluids 1010 / 1010 1010 / 1010 0.9 % Sodium Chloride 1,000 ML 1000 / 1000 1000 / 1000 @ 120 mls/hr IVC .Q8H20M [facility] Rx #:[id number] Mefoxin 1,000 MG In Water for inj. (sterile) 10 ML @ 150 mls/ hr IVPB Q8HR [facility] Rx#:[id number] Oral 720 / 720 0 / 0 Output: Urine 1425 / 1425 1450 / 1450 Other: Meal NPO Weight 82.055 kg Blood Glucose* 217 119 108 Patient Weight 01/23/18 23:59 Weight 82.055 kg - General physical appearance well developed, well nourished - Eyes PERRL, normal ocular movement - ENT normal mucosa - Neck Neck exam: trachea midline - Respiratory normal expansion, clear to auscultation - Cardiovascular Cardiovascular exam: Present: RRR - Abdomen Abdomen: Present: bowel sounds present, soft, non tender. Absent: rigid - Integumentary no rash, no growths - Neurologic CN 2-12 grossly intact - Musculoskeletal normal posture - Psychiatric oriented to time, oriented to person, oriented to place, speech is normal, memory intact - Labs 01/23/18 04:20 01/23/18 04:20 Diabetes panel 01/23/18 Range/Units 04:20 Sodium 142 (136-145) mEq/L Potassium 3.7 (3.5-5.1) mEq/L Chloride 110 H (98-107) mEq/L Carbon Dioxide 28 (23-29) mEq/L BUN 9 (6-20) mg/dL Creatinine 0.65 L (0.70-1.30) mg/dL Glucose 118 H (70-105) mg/dL Calcium 8.5 L (8.6-10.3) mg/dL AST 19 (13-39) Units/L ALT 109 H (7-52) Units/L Alkaline Phosphatase 84 (34-104) Units/L Albumin 3.3 L (3.5-5.7) g/dL Calcium panel 01/23/18 Range/Units 04:20 Calcium 8.5 L (8.6-10.3) mg/dL Albumin 3.3 L (3.5-5.7) g/dL Pituitary panel 01/23/18 Range/Units 04:20 Sodium 142 (136-145) mEq/L Potassium 3.7 (3.5-5.1) mEq/L Chloride 110 H (98-107) mEq/L Carbon Dioxide 28 (23-29) mEq/L BUN 9 (6-20) mg/dL Creatinine 0.65 L (0.70-1.30) mg/dL Glucose 118 H (70-105) mg/dL Calcium 8.5 L (8.6-10.3) mg/dL Adrenal panel 01/23/18 Range/Units 04:20 Sodium 142 (136-145) mEq/L Potassium 3.7 (3.5-5.1) mEq/L Chloride 110 H (98-107) mEq/L Carbon Dioxide 28 (23-29) mEq/L BUN 9 (6-20) mg/dL Creatinine 0.65 L (0.70-1.30) mg/dL Glucose 118 H (70-105) mg/dL Calcium 8.5 L (8.6-10.3) mg/dL Total Bilirubin 0.6 (0.3-1.0) mg/dL AST 19 (13-39) Units/L ALT 109 H (7-52) Units/L Alkaline Phosphatase 84 (34-104) Units/L Albumin 3.3 L (3.5-5.7) g/dL - Attending Attestation I examined this patient and my medical decision-making was reviewed with the Resident Physician. I agree with the documented findings, disposition and treatment plan as described except to the extent set forth below.
[2018-01-23] MEDS: *HR* FentaNYL (PF) 100 MCG/2 ML VIAL IVP PRN ×3 (00:36→13:56)
[2018-01-23] MEDS: Insulin LISPRO 300 UNITS/3 ML VIAL SQ SCH ×4 (02:52→18:21)
[2018-01-23 05:27] LABS: Basophils % 0.4 %; Eosinophils # 0.6 K/mcL (0.0-0.6); Eosinophils % 8.7 %; Hematocrit 32.7 % (37.5-50.1); Hemoglobin 10.7 g/dL (12.9-16.9); Immature Granulocytes % 0.1 % (0-4); Lymphocytes % 28.8 %; Mean Corpuscular HGB Conc 32.7 g/dL (31.6-35.5); Mean Corpuscular Hemoglobin 27.9 pg (28.0-33.3); Mean Corpuscular Volume 85.4 fL (83.0-100.0); Mean Platelet Volume 10.6 fL (9.4-12.4); Monocytes # 0.5 K/mcL (0.0-1.3); Monocytes % 7.7 %; Neutrophils # 3.7 K/mcL (1.6-8.9); Platelet Count 214 K/mcL (140-400); Red Blood Count 3.83 M/mcL (4.19-5.50); Red Cell Distribution Width 13.2 % (11.5-14.5); Segmented Neutrophils % 54.3 %
[2018-01-23 05:45] LABS: Alanine Aminotransferase 109 Units/L (7-52); Albumin 3.3 g/dL (3.5-5.7); Albumin/Globulin Ratio 1.4 (1.1-2.2); Alkaline Phosphatase 84 Units/L (34-104); Aspartate Amino Transferase 19 Units/L (13-39); BUN/Creatinine Ratio 14 (6-26); Bilirubin,Total 0.6 mg/dL (0.3-1.0); Blood Urea Nitrogen 9 mg/dL (6-20); Calcium 8.5 mg/dL (8.6-10.3); Carbon Dioxide 28 mEq/L (23-29); Chloride 110 mEq/L (98-107); Globulin 2.4 g/dL (2.4-3.5); Glucose 118 mg/dL (70-105); Lipase 23 Units/L (11-82); Osmolality,Calculated 294 (280-300); Potassium 3.7 mEq/L (3.5-5.1); Sodium 142 mEq/L (136-145); Total Protein 5.7 g/dL (6.4-8.9); eGFR For African Americans > 60 (> 60); eGFR For Non-African Americans > 60 (> 60)
[2018-01-23] MEDS: 0.9 % Sodium Chloride 1,000 ML IVC SCH ×3 (06:17→21:22)
[2018-01-23] MEDS: Ketorolac 15 MG/ML VIAL IVP SCH ×3 (06:18→18:22)
[2018-01-23] MEDS: Pantoprazole 40 MG VIAL IVP SCH (06:18)
[2018-01-23] MEDS: cefOXitin 1,000 MG in Water for inj. (sterile) 20 ML 10 ML IVPB SCH ×2 (08:11→15:25)
[2018-01-23] MEDS ORDERED: Albuterol 2.5 MG/3 ML NEBULIZER IH ONE (16:46)
[2018-01-23] MEDS ORDERED: Famotidine 20 MG/2 ML VIAL IVP ONE (16:46)
[2018-01-23] MEDS ORDERED: Acetaminophen IV 1,000 MG/100 ML INFUS..BTL IVPB ONE (16:46)
[2018-01-23] MEDS ORDERED: Lidocaine -MPF 2% 2 ML VIAL ONE (16:47)
[2018-01-23] MEDS ORDERED: Dexamethasone 4 MG/ML VIAL ONE (16:47)
[2018-01-23] MEDS ORDERED: *HR* FentaNYL (PF) 100 MCG/2 ML VIAL ONE ×3 (16:47→18:06)
[2018-01-23] MEDS ORDERED: *HR* Midazolam HCl 2 MG/2 ML VIAL ONE (16:47)
[2018-01-23] MEDS ORDERED: *HR* Rocuronium Bromide 50 MG/5 ML VIAL ONE (16:47)
[2018-01-23] MEDS ORDERED: *HR* Propofol 200 MG/20 ML VIAL IVP ONE (16:47)
[2018-01-23] MEDS ORDERED: Ondansetron 4 MG/2 ML VIAL ONE (16:47)
--- NOTE | 2018-01-23 17:08 | Anesthesia Evaluation PreOp ---
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: Denies Any Significant HX, Other (Grade I L5 Listhesis w/moderated stenosis) Other Medical History: Denies Any Significant HX, Diabetes Type II (maintained on Metformin) Anesthesia History: Past Anesthesia (B-shoulder scopes/RCR, Hernia repairs x 3) Alcohol Use: rarely Drug use: none Medications and Allergies Metformin HCl [Glucophage] 1,000 mg PO BID 01/20/18 [History] Pregabalin [Lyrica] 100 mg PO TID 01/20/18 [History] Tramadol HCl [Ultram] 50 mg PO QID PRN 01/20/18 [History] 3 Allergy/AdvReac Type Severity Reaction Status Date / Time No Known Allergies Allergy Verified 01/19/18 12:47 - Meds/Allergy Pre-op Review Medications Reviewed: Yes Allergies Reviewed: Yes Beta Blockers on Current Med List: No Anesthesia Results - Labs 01/23/18 04:20 01/23/18 04:20 Laboratory Results Impressions Abdomen MRI 01/20/18 07:46 IMPRESSION: Findings of acute pancreatitis are demonstrated. Cholelithiasis with mild gallbladder wall thickening. Pericholecystic fluid is noted, which may be related to acute pancreatitis. The possibility of acute cholecystitis should also be considered. No choledocholithiasis. No biliary dilatation. D/ / Michael Nuñez / Michael Nuñez Interpreting Provider: Michael Nuñez Anesthesia Exam Vital Signs Temp Pulse Resp BP Pulse Ox 01/23/18 14:49 98.6 F 58 14 142/78 99 01/23/18 11:15 98.3 F 60 18 136/79 98 01/23/18 06:35 98.2 F 58 16 120/70 100 01/23/18 03:22 97.9 F 57 14 107/63 98 01/22/18 23:02 98.0 F 60 14 153/66 99 01/22/18 18:42 98.2 F 71 14 125/49 98 Intake and Output 01/23/18 01/23/18 01/23/18 07:59 15:59 23:59 Intake Total 1010 / 1010 1020 / 1020 Output Total 1450 / 1450 500 / 500 Balance -440 / -440 520 / 520 Intake: IV Fluids 1010 / 1010 1020 / 1020 0.9 % Sodium Chloride 1,000 ML 1000 / 1000 1000 / 1000 @ 120 mls/hr IVC .Q8H20M [facility] Rx #:[id number] Mefoxin 1,000 MG In Water for 20 inj. (sterile) 10 ML @ 150 mls/ hr IVPB Q8HR [facility] Rx#:[id number] Oral 0 / 0 Output: Urine 1450 / 1450 500 / 500 Other: Meal NPO Weight 82.055 kg Blood Glucose* 119 108 Patient Weight 01/23/18 23:59 Weight 82.055 kg Height: 5'8" Weight: 180# BMI = 27.5 NPO (# of Hours): MNoc - HEENT Pupil (Motor): EOMI Mallampati: II Teeth: Normal Oral Opening: Greater than 3 - HATCHERY LABORER LOC: Oriented HATCHERY LABORER Motor: Normal RUE, Normal LUE, Normal RLE, Normal LLE, Normal Face HATCHERY LABORER Sensory: Normal: RUE, LUE, RLE, LLE, Face - Cardiac Rhythm: Regular Murmur: None - Pulmonary Breath Sounds: bilateral Clear Respiratory Effort: Symmetrical Anesthesia Assess/Plan ASA Score: 2 Modified Mat Scale for Level of Consciousness: Cooperative, oriented, and tranquil Anesthetic Plan: General Monitoring Plan: Standard Monitors Recovery Plan: PACU Anes Supervising Prov Stmt: Pt seen/evaluated, R&B discussed, questions answered and consent obtained. Edna Molina MD
[2018-01-23] MEDS ORDERED: Ketorolac 30 MG/ML VIAL ONE (17:13)
[2018-01-23] MEDS ORDERED: Pregabalin 75 MG CAPSULE ONE (17:13)
[2018-01-23] MEDS ORDERED: Neostigmine Methylsulfate 3 MG/3 ML SYRINGE ONE (17:13)
[2018-01-23] MEDS ORDERED: Acetaminophen IV 1,000 MG/100 ML INFUS..BTL ONE (17:14)
[2018-01-23] MEDS ORDERED: *HR* Promethazine 25 MG/ML VIAL IVP PRN ×2 (17:16→19:40)
[2018-01-23] MEDS ORDERED: Dexamethasone 4 MG/ML VIAL IVP ONE (17:16)
[2018-01-23] MEDS ORDERED: *HR* HYDROmorphone 2 MG TABLET PO PRN (17:16)
[2018-01-23] MEDS ORDERED: *HR* Labetalol 100 MG/20 ML MDV IVP PRN (17:16)
[2018-01-23] MEDS ORDERED: Ondansetron 4 MG/2 ML VIAL IVP ONE (17:16)
[2018-01-23] MEDS ORDERED: Isovue-300 50 ML VIAL IVP ONE (18:04)
[2018-01-23] MEDS ORDERED: *HR* Morphine 10 MG/ML VIAL ONE (18:36)
--- NOTE | 2018-01-23 18:50 | Operative Note ---
Date of procedure: 01/23/18 Pre-op diagnosis: gallstone pancreatitis Post-op diagnosis: same (choledocholithiasis) Procedure: Lapaparoscopic cholecystectomy with intra-operative cholangiograms Complications: none Anesthesia: GETA, local Local Anesthetics: 0.5% Sensorcaine HCL SubQ (cc) Surgeon: Yajaira Negrete Was there an wet process assistant head miller present: No Estimated blood loss (cc): 5 Specimen: gallstone and contents Condition: stable Disposition: PACU Procedure in Detail: The patient was brought into the operating suite and placed supine on the operating table. Sign-in was performed and everyone was in agreement. Anesthesia was induced and patient was endotracheally intubated by anesthesia without incident and they also placed an OG tube. The abdomen was prepped and draped in the usual sterile fashion. A timeout was performed again everyone was in agreement. A supraumbilical incision was made through the skin into the subcutaneous tissue with an 11 blade. Towel clamps were placed on either side of the umbilicus for retraction. S retractors were used to dissect down to the anterior abdominal wall linea alba fascia. A Veress needle was placed through this incision and a water drop test confirmed placement and the abdomen was insufflated. The abdomen was entered with a 5 mm 0 degree laparoscope on a 5 mm Optiview trocar. The area and entry was visualized was no bleeding and no apparent bowel injury. A 5 mm subxiphoid port was placed under direct visualization after first incising the skin with an 11 blade. A right upper quadrant subcostal position midclavicular line 5 mm port was placed under direct visualization after first incising skin with 11 blade. The laparoscope was placed in this and we exchanged the supraumbilical port for a 12 mm port under direct visualization. The last 5 mm port was placed in the right upper quadrant subcostal position anterior axillary line after first incising the skin with an 11 blade. The patient was placed in steep reverse Trendelenburg left side down position. The dome of the gallbladder was grasped and retracted cephalad. Omental adhesions to the body and infundibulum of the gallbladder were taken down bluntly with the [place]. The infundibulum was grasped and retracted laterally. Using the [place] we dissected out the cystic duct and cystic artery. Two 5 mm Hemoclips were placed proximally on the cystic artery and one distally and it was trasected with curved scissors. A 5 mm metal Hemoclip was placed proximally on the cystic duct. The cystic duct was partially transected with curved scissors. Using the Denise clamp, the cholangiocatheter was introduced into the partially transected cystic duct with the [place]. A metal 5 mm hemoclip was placed across the proximal cystic duct and the cholangiocatheter. The catheter flushed easily. The patient was placed in slight Trendelenberg position. Cholangiograms were obtained showing contrast up into the left and right intrahepatic ducts down through the common hepatic and common bile duct and into the duodenum. There does appear to be a small stone in the distal common bile duct. 25 of Isovue was used for the cholangiograms patient was returned to reverse Trendelenburg left side down position. The clip on the cholangiocatheter and proximal cystic duct was removed as well as the cholangiocatheter. Three 5 mm hemoclips were placed proximally on the cystic duct and it was transected with curved scissors. The gallbladder was removed off the cystic plate with the Bovie. Any bleeding points were stopped with the Bovie. The gallbladder was placed in a laparoscopic Endo Catch bag and removed via the supraumbilical incision site which had to be enlarged with an 11 blade to remove a large stone. The inferior edge of the liver was bluntly retracted cephalad and the cystic plate was copiously irrigated with sterile saline. There was no bleeding or apparent bile leak from the cystic plate and the clips on the cystic artery and duct were intact. All irrigation was suctioned free from the abdomen. All insufflation was suctioned free from the abdomen and the ports removed. The abdominal wall at the supraumbilical incision site was closed with a 0 Vicryl [id number] stitch x3. 30 mL of 0.5% Marcaine was injected subcutaneously at the 4 port sites. The skin at the three 5 mm port sites were closed with 4- 0 Monocryl interrupted subcuticular stitches. The skin at the supraumbilical incision site was closed with a 4-0 Monocryl running subcuticular stitch. Steri -Strips were applied to all wounds. The patient was awoken in the operating suite having tolerated the procedure well and were taken to PACU in stable condition after all lap and ensuring counts were correct at the end of the case.
--- NOTE | 2018-01-23 18:52 | Event Note ---
Date of Encounter: 01/23/18 Time of Encounter: 18:51 patient with filling defect at distal cbd, will consult gi for ercp on friday as they are not covering this weekend, discussed with family
--- NOTE | 2018-01-23 19:13 | Anesthesia Evaluation Post Op ---
Date of Encounter: 01/23/18 Time of Encounter: 19:12 - Vital Signs Vital Signs: Vital Signs/O2 Sat, Most Current Temp Pulse Resp BP Pulse Ox 98.1 F 46 16 166/83 96 01/23/18 19:08 01/23/18 19:08 01/23/18 19:08 01/23/18 19:08 01/23/18 19:08 - Lungs Lungs: Clear Ascult./Percussion - Airway Airway: Non-obstructed - Cardiovascular Regular Rate - Mental Status Mental Status: Alert & Oriented, Answers Appropriately - Pain Pain Scale: 3 Pain Scale used: Numeric (1 - 10) - Nausea Vomiting Nausea Vomiting: Not Present - Hydration Hydration: Ice chips, Has not voided - Discharge PostOp Status: Transfer Patient to floor
[2018-01-23] MEDS ORDERED: Naloxone 0.4 MG/ML INJ IVP PRN (19:40)
[2018-01-23] MEDS ORDERED: Dextrose Gel 15 GM/37.5 ML TUBE PO PRN ×2 (19:40)
[2018-01-23] MEDS ORDERED: OXYCODONE Oral CONC 10 MG/0.5 ML ORAL.SYG SL PRN (19:40)
[2018-01-23] MEDS ORDERED: Ondansetron 4 MG/2 ML VIAL IVP PRN (19:40)
[2018-01-23] MEDS ORDERED: *HR* OxyCODONE/APAP 5/325 TABLET PO PRN (19:40)
[2018-01-23] MEDS ORDERED: *HR* Metoprolol 5 MG/5 ML VIAL IVP PRN (19:40)
[2018-01-23] MEDS ORDERED: *HR* Dextrose 50 % in Water (Syg) 50 ML SYRINGE IVP PRN (19:40)
[2018-01-23] MEDS: OXYCODONE Oral CONC 10 MG/0.5 ML ORAL.SYG SL PRN (21:21)
[2018-01-24] MEDS: Insulin LISPRO 300 UNITS/3 ML VIAL SQ SCH ×4 (00:22→18:36)
[2018-01-24] MEDS: OXYCODONE Oral CONC 10 MG/0.5 ML ORAL.SYG SL PRN ×5 (01:35→20:33)
[2018-01-24] MEDS: cefOXitin 1,000 MG in Water for inj. (sterile) 20 ML 10 ML IVPB SCH ×3 (01:35→15:58)
[2018-01-24 06:05] LABS: Albumin 3.7 g/dL (3.5-5.7); Albumin/Globulin Ratio 1.4 (1.1-2.2); Bilirubin,Direct 0.1 mg/dL (0.0-0.2); Bilirubin,Indirect 0.5 mg/dL (0.0-1.2); Bilirubin,Total 0.6 mg/dL (0.3-1.0); Globulin 2.6 g/dL (2.4-3.5); Total Protein 6.3 g/dL (6.4-8.9)
[2018-01-24] MEDS: Pantoprazole 40 MG VIAL IVP SCH (06:05)
--- NOTE | 2018-01-24 15:47 | General Surgery Progress Note ---
Date of Encounter: 01/24/18 Time of Encounter: 11:30 - Assessment and Plan (1) S/P laparoscopic cholecystectomy Current Visit: Yes Status: Acute DDX: cholelithiasis, gallstone pancreatitis, and acute cholecystitis. -Initial symptoms began 01/19/2018 as severe right upper quadrant pain with nausea, but no vomiting. -Initial workup significant for elevated bilirubin predominantly indirect, elevated liver enzymes, elevated ALP, and elevated pancreatic enzymes. -MRI of the abdomen on 01/20/2018 demonstrated findings consistent with acute pancreatitis, cholelithiasis, and cholecystitis. -Patient started on Cefoxitin, monitored in interim, and fasted for laparoscopic cholecystectomy which was ultimately completed on 01/23/2018. -Procedure successful, but there was a filling defect at distal common bile duct necessitating G.I. consult for ERCP on 01/26/2018. Plan: - clear liquid diet for now; may have applesauce - FSBG & LD-SSI q6h for now - NPO at midnight on 01/25/18 for possible ERCP on 01/26/18 - pain and nausea control as needed - ambulate in halls - cont Cefoxitin for now pending ERCP (day 6) - has been somewhat bradycardic throughout, but otherwise appears stable; monitor - will need to call GI on Friday morning (01/26/18) for ERCP (2) Acute cholecystitis Current Visit: No Status: Acute (3) Gallstone pancreatitis Current Visit: Yes Status: Acute (4) Diabetes mellitus Current Visit: Yes Status: Acute Qualifiers: Diabetes mellitus type: type 2 Diabetes mellitus penitentiary insulin use: without penitentiary use Diabetes mellitus complication status: without complication Qualified Code(s): E11.9 - Type 2 diabetes mellitus without complications (5) DVT prophylaxis Current Visit: Yes Status: Acute Mechanical prophylaxis, ambulate in halls TID Subjective Narrative: Feels comfortable overall today. No distinct complaints. Is on clear liquids for now, but requests apple sauce. No N/V today. No fevers overnight. No BMs. Has passed gas. Objective Vital Signs - Last 8 Hours Temp Pulse Resp BP Pulse Ox 01/24/18 14:37 98.4 F 51 15 133/74 99 01/24/18 10:16 97.6 F 49 15 126/75 98 Intake and Output 01/23/18 01/24/18 01/24/18 23:59 07:59 15:59 Intake Total 130 / 130 960 / 960 Output Total 1000 / 1000 0 / 0 Balance -5 / -5 -870 / -870 960 / 960 Intake: IV Fluids Mefoxin 1,000 MG In Water for inj. (sterile) 10 ML @ 150 mls/ hr IVPB Q8HR [facility] Rx#:[id number] Oral 120 / 120 960 / 960 Output: Urine 1000 / 1000 0 / 0 Estimated Blood Loss Other: Meal Lunch Weight 82.13 kg Blood Glucose* 112 124 158 Patient Weight 01/24/18 23:59 Weight 82.13 kg VITAL SIGNS: Reviewed. See [facility] GENERAL: comfortable in bed, answers questions appropriately, NAD HEENT: normocephalic, PER, oral mucosa pink/moist CV: RRR; somewhat bradycardic, but has been throughout; VSS otherwise RESPIRATORY: CTAB ABD: soft, expected tenderness INCISION: sites clean, dry, intact without purulence/bleeding/edema/rubor/calor EXTREMITY: grossly normal motor function, no pedal edema, peripheral pulses 2+ b /l NEUROLOGIC EXAM: AOx3, obeys commands, no speech deficits. PSYCHIATRIC: normal mood and affect SKIN: no gross lesions, rashes, or skin changes - Labs 01/23/18 04:20 01/23/18 04:20 Diabetes panel 01/24/18 Range/Units 05:21 AST 35 (13-39) Units/L ALT 105 H (7-52) Units/L Alkaline Phosphatase 97 (34-104) Units/L Albumin 3.7 (3.5-5.7) g/dL Calcium panel 01/24/18 Range/Units 05:21 Albumin 3.7 (3.5-5.7) g/dL Adrenal panel 01/24/18 Range/Units 05:21 Total Bilirubin 0.6 (0.3-1.0) mg/dL AST 35 (13-39) Units/L ALT 105 H (7-52) Units/L Alkaline Phosphatase 97 (34-104) Units/L Albumin 3.7 (3.5-5.7) g/dL - VTE Documentation of Mechanical Device: Intermittent pneumatic compression device Consult Discharge Plan - Plan Referrals: Austyn Marcano CNP [Primary Care Provider] -
[2018-01-24] MEDS: 0.9 % Sodium Chloride 1,000 ML IVC SCH (20:44)
[2018-01-25] MEDS: OXYCODONE Oral CONC 10 MG/0.5 ML ORAL.SYG SL PRN ×5 (00:41→20:18)
[2018-01-25] MEDS: cefOXitin 1,000 MG in Water for inj. (sterile) 20 ML 10 ML IVPB SCH ×3 (00:41→16:11)
[2018-01-25] MEDS: Insulin LISPRO 300 UNITS/3 ML VIAL SQ SCH ×4 (01:07→17:37)
[2018-01-25] MEDS: Pantoprazole 40 MG VIAL IVP SCH (05:30)
--- NOTE | 2018-01-25 10:23 | General Surgery Progress Note ---
Date of Encounter: 01/25/18 Time of Encounter: 10:23 - Assessment and Plan (1) S/P laparoscopic cholecystectomy Current Visit: Yes Status: Acute DDX: cholelithiasis, gallstone pancreatitis, and acute cholecystitis. -Initial symptoms began 01/19/2018 as severe right upper quadrant pain with nausea, but no vomiting. -Initial workup significant for elevated bilirubin predominantly indirect, elevated liver enzymes, elevated ALP, and elevated pancreatic enzymes. -MRI of the abdomen on 01/20/2018 demonstrated findings consistent with acute pancreatitis, cholelithiasis, and cholecystitis. -Patient started on Cefoxitin, monitored in interim, and fasted for laparoscopic cholecystectomy which was ultimately completed on 01/23/2018. -Procedure successful, but there was a filling defect at distal common bile duct necessitating ERCP. 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 No nausea or vomiting. Tolerating clears and applesauce with no difficulty. Passing gas and BM's. Patient understands he is NPO midnight for possible ERCP in the morning. Afebrile overnight. No acute complaints. Objective Vital Signs - Last 8 Hours Temp Pulse Resp BP Pulse Ox 01/25/18 10:18 98.1 F 53 15 158/80 99 01/25/18 06:39 97.7 F 46 15 148/80 99 01/25/18 03:36 97.6 F 52 16 130/80 97 Intake and Output 01/24/18 01/25/18 01/25/18 23:59 07:59 15:59 Intake Total 1370 / 1370 250 / 250 240 / 240 Output Total 800 / 800 1100 / 1100 550 / 550 Balance 570 / 570 -850 / -850 -310 / -310 Intake: IV Fluids 1010 / 1010 0.9 % Sodium Chloride 1,000 ML 1000 / 1000 @ 50 mls/hr IVC .Q20H [facility] Rx#: [id number] Mefoxin 1,000 MG In Water for inj. (sterile) 10 ML @ 150 mls/ hr IVPB Q8HR [facility] Rx#:[id number] Oral 360 / 360 240 / 240 240 / 240 Output: Urine 800 / 800 1100 / 1100 550 / 550 Other: Meal Full Percent of Meal Consumed 40% Weight 82.1 kg Blood Glucose* 188 110 Patient Weight 01/25/18 23:59 Weight 82.1 kg VITAL SIGNS: Reviewed. See [facility] GENERAL: comfortable in bed, answers questions appropriately, NAD HEENT: normocephalic, PER, oral mucosa pink/moist CV: RRR; somewhat bradycardic, but has been throughout; VSS otherwise RESPIRATORY: CTAB ABD: soft, expected tenderness INCISION: sites clean, dry, intact without purulence/bleeding/edema/rubor/calor EXTREMITY: grossly normal motor function, no pedal edema, peripheral pulses 2+ b /l NEUROLOGIC EXAM: AOx3, obeys commands, no speech deficits. PSYCHIATRIC: normal mood and affect SKIN: no gross lesions, rashes, or skin changes - Labs 01/23/18 04:20 01/23/18 04:20 - VTE Documentation of Mechanical Device: Intermittent pneumatic compression device Consult Discharge Plan - Plan Referrals: Austyn Marcano CHIEF SPECIALIST [employer] [Primary Care Provider] -
[2018-01-26] MEDS: Insulin LISPRO 300 UNITS/3 ML VIAL SQ SCH ×3 (00:31→14:24)
[2018-01-26] MEDS: OXYCODONE Oral CONC 10 MG/0.5 ML ORAL.SYG SL PRN ×3 (00:39→10:08)
[2018-01-26] MEDS: cefOXitin 1,000 MG in Water for inj. (sterile) 20 ML 10 ML IVPB SCH ×2 (00:40→10:08)
[2018-01-26 05:12] LABS: Basophils # 0.1 K/mcL (0.0-0.2); Basophils % 0.7 %; Eosinophils # 0.5 K/mcL (0.0-0.6); Eosinophils % 7.2 %; Hematocrit 31.7 % (37.5-50.1); Immature Granulocytes % 0.1 % (0-4); Lymphocytes # 1.9 K/mcL (0.6-4.6); Lymphocytes % 27.4 %; Mean Corpuscular HGB Conc 34.7 g/dL (31.6-35.5); Mean Corpuscular Volume 83.6 fL (83.0-100.0); Mean Platelet Volume 10.3 fL (9.4-12.4); Monocytes # 0.4 K/mcL (0.0-1.3); Monocytes % 6.4 %; Neutrophils # 3.9 K/mcL (1.6-8.9); Platelet Count 245 K/mcL (140-400); Red Blood Count 3.79 M/mcL (4.19-5.50); Red Cell Distribution Width 12.9 % (11.5-14.5); Segmented Neutrophils % 58.2 %
[2018-01-26 05:35] LABS: Alanine Aminotransferase 63 Units/L (7-52); Albumin 3.4 g/dL (3.5-5.7); Albumin/Globulin Ratio 1.4 (1.1-2.2); Alkaline Phosphatase 88 Units/L (34-104); Aspartate Amino Transferase 17 Units/L (13-39); BUN/Creatinine Ratio 10 (6-26); Bilirubin,Direct 0.1 mg/dL (0.0-0.2); Bilirubin,Indirect 0.4 mg/dL (0.0-1.2); Bilirubin,Total 0.5 mg/dL (0.3-1.0); Blood Urea Nitrogen 6 mg/dL (6-20); Calcium 8.5 mg/dL (8.6-10.3); Carbon Dioxide 29 mEq/L (23-29); Chloride 107 mEq/L (98-107); Globulin 2.4 g/dL (2.4-3.5); Glucose 115 mg/dL (70-105); Osmolality,Calculated 295 (280-300); Potassium 3.1 mEq/L (3.5-5.1); Sodium 143 mEq/L (136-145); Total Protein 5.8 g/dL (6.4-8.9); eGFR For African Americans > 60 (> 60); eGFR For Non-African Americans > 60 (> 60)
[2018-01-26] MEDS: 0.9 % Sodium Chloride 1,000 ML IVC SCH (05:56)
[2018-01-26] MEDS: Pantoprazole 40 MG VIAL IVP SCH (05:56)
--- NOTE | 2018-01-26 07:14 | General Surgery Progress Note ---
<Lincoln Mcintyre - Last Filed: 01/26/18 11:37> Date of Encounter: 01/26/18 Time of Encounter: 07:05 - Assessment and Plan (1) S/P laparoscopic cholecystectomy Current Visit: Yes Status: Acute POD# 3. Pain well controlled. Currently NPO for ERCP scheduled later today. - NPO - pain and nausea control as needed. - Ambulate TID. - cont cefoxitin for now pending ERCP (day 8). - Vital signs have been stable. Afebrile overnight. (2) Hypokalemia Current Visit: Yes Status: Acute Potassium level at 3.1. - 40 meq potassium IV. (3) Diabetes mellitus Current Visit: Yes Status: Acute Glucose level at 115. - FSBG & LD-SSI q6h for now Qualifiers: Diabetes mellitus type: type 2 Diabetes mellitus intermediate insulin use: without intermediate use Diabetes mellitus complication status: without complication Qualified Code(s): E11.9 - Type 2 diabetes mellitus without complications (4) DVT prophylaxis Current Visit: Yes Status: Acute Intermittent pneumatic compression devices; ambulation TID. Subjective Narrative: Patient says he has mild abdominal tenderness, mostly around the umbilical region. He denies any nausea or vomiting. He denies having a BM since his cholecystectomy 3 days ago, but does admit to passing gas. He denies fever, chills, chest pain or shortness of breath. Objective VITAL SIGNS: Reviewed. See [facility] GENERAL: no apparent distress. HEENT: [Normocephalic, PER, EOMi, oropharynx pink/moist, no JVD noted.] CV: b/l rad pulses 2+, RRR, no murmurs or gallops, no JVD RESPIRATORY: CTAB without wheezes, rales, or rhonchi ABD: soft, minor tenderness to deep palpation of umbilical region, no rebound/ guarding/rigidity, no peritoneal signs. Normal bowel sounds. INCISION: 4 incision site (R flank, RUQ, mid epigastric, and periumbilical) clean, dry, intact without purulence/bleeding/edema/rubor/calor EXTREMITY: grossly normal motor function, no pedal edema, peripheral pulses 2+ b /l NEUROLOGIC EXAM: AOx3, obeys commands, no speech deficits. PSYCHIATRIC: normal mood and affect SKIN: no gross lesions, rashes, or skin changes Vital Signs - Last 8 Hours Temp Pulse Resp BP Pulse Ox 01/26/18 06:42 97.8 F 52 18 133/76 98 01/26/18 03:00 97.9 F 51 15 121/78 96 01/25/18 23:27 97.9 F 53 15 122/69 96 Intake and Output 01/25/18 01/25/18 01/26/18 15:59 23:59 07:59 Intake Total 1090 / 1090 750 / 750 0 / 0 Output Total 1450 / 1450 1150 / 1150 1850 / 1850 Balance -360 / -360 -400 / -400 -1850 / -1850 Intake: IV Fluids 510 / 510 0.9 % Sodium Chloride 1,000 ML 500 / 500 @ 50 mls/hr IVC .Q20H [facility] Rx#: [id number] Mefoxin 1,000 MG In Water for inj. (sterile) 10 ML @ 150 mls/ hr IVPB Q8HR [facility] Rx#:[id number] Oral 1080 / 1080 240 / 240 0 / 0 Output: Urine 1450 / 1450 1150 / 1150 1850 / 1850 Other: Meal Clears Dinner Weight 171.5 kg Blood Glucose* 127 116 106 Patient Weight 01/26/18 23:59 Weight 171.5 kg - Labs 01/26/18 04:51 01/26/18 04:51 Diabetes panel 01/26/18 Range/Units 04:51 Sodium 143 (136-145) mEq/L Potassium 3.1 L (3.5-5.1) mEq/L Chloride 107 (98-107) mEq/L Carbon Dioxide 29 (23-29) mEq/L BUN 6 (6-20) mg/dL Creatinine 0.62 L (0.70-1.30) mg/dL Glucose 115 H (70-105) mg/dL Calcium 8.5 L (8.6-10.3) mg/dL AST 17 (13-39) Units/L ALT 63 H (7-52) Units/L Alkaline Phosphatase 88 (34-104) Units/L Albumin 3.4 L (3.5-5.7) g/dL Calcium panel 01/26/18 Range/Units 04:51 Calcium 8.5 L (8.6-10.3) mg/dL Albumin 3.4 L (3.5-5.7) g/dL Pituitary panel 01/26/18 Range/Units 04:51 Sodium 143 (136-145) mEq/L Potassium 3.1 L (3.5-5.1) mEq/L Chloride 107 (98-107) mEq/L Carbon Dioxide 29 (23-29) mEq/L BUN 6 (6-20) mg/dL Creatinine 0.62 L (0.70-1.30) mg/dL Glucose 115 H (70-105) mg/dL Calcium 8.5 L (8.6-10.3) mg/dL Adrenal panel 01/26/18 Range/Units 04:51 Sodium 143 (136-145) mEq/L Potassium 3.1 L (3.5-5.1) mEq/L Chloride 107 (98-107) mEq/L Carbon Dioxide 29 (23-29) mEq/L BUN 6 (6-20) mg/dL Creatinine 0.62 L (0.70-1.30) mg/dL Glucose 115 H (70-105) mg/dL Calcium 8.5 L (8.6-10.3) mg/dL Total Bilirubin 0.5 (0.3-1.0) mg/dL AST 17 (13-39) Units/L ALT 63 H (7-52) Units/L Alkaline Phosphatase 88 (34-104) Units/L Albumin 3.4 L (3.5-5.7) g/dL - VTE Documentation of Mechanical Device: Intermittent pneumatic compression device Consult Discharge Plan - Plan Referrals: Austyn Marcano, SIDNEY [Primary Care Provider] - <Yajaira Negrete - Last Filed: 01/26/18 13:07> Date of Encounter: 01/26/18 - Assessment and Plan (1) Gallstone pancreatitis Current Visit: Yes Status: Acute s/p lap cholecystectomy, with cholangiograms which showed a cbd stone planning ercp with gi today npo, ivf hydration prn pain control (2) DVT prophylaxis Current Visit: Yes Status: Acute (3) Diabetes mellitus Current Visit: Yes Status: Acute well controlled Qualifiers: Diabetes mellitus type: type 2 Diabetes mellitus terminal supervisor insulin use: without intermediate use Diabetes mellitus complication status: without complication Qualified Code(s): E11.9 - Type 2 diabetes mellitus without complications Subjective Patient reports: feels better, still having pain, pain is less, tolerating liquids well, flatus Objective Vital Signs - Last 8 Hours Temp Pulse Resp BP Pulse Ox 01/26/18 10:53 98.4 F 54 18 134/84 96 01/26/18 06:42 97.8 F 52 18 133/76 98 Intake and Output 01/25/18 01/26/18 01/26/18 23:59 07:59 15:59 Intake Total 750 / 750 0 / 0 Output Total 1150 / 1150 1850 / 1850 200 / 200 Balance -400 / -400 -1850 / -1850 -190 / -190 Intake: IV Fluids 510 / 510 0.9 % Sodium Chloride 1,000 ML 500 / 500 @ 50 mls/hr IVC .Q20H [facility] Rx#: [id number] Mefoxin 1,000 MG In Water for inj. (sterile) 10 ML @ 150 mls/ hr IVPB Q8HR [facility] Rx#:[id number] Oral 240 / 240 0 / 0 0 / 0 Output: Urine 1150 / 1150 1850 / 1850 200 / 200 Other: Meal Dinner npo Weight 171.5 kg Blood Glucose* 116 106 Patient Weight 01/26/18 23:59 Weight 171.5 kg - General physical appearance well developed, well nourished, no distress - Eyes PERRL, normal ocular movement - ENT normal mucosa, normocephalic - Neck Neck exam: trachea midline - Respiratory normal expansion, normal respiratory effort - Cardiovascular Cardiovascular exam: Present: RRR - Abdomen Abdomen: Present: soft, tender (appropirate post op tenderness). Absent: guarding, rebound - Incision Incision: Present: clean and dry, intact - Integumentary no rash, no growths - Neurologic CN 2-12 grossly intact - Musculoskeletal normal posture - Psychiatric oriented to time, oriented to person, oriented to place, speech is normal, memory intact - Labs 01/26/18 04:51 01/26/18 04:51 Diabetes panel 01/26/18 Range/Units 04:51 Sodium 143 (136-145) mEq/L Potassium 3.1 L (3.5-5.1) mEq/L Chloride 107 (98-107) mEq/L Carbon Dioxide 29 (23-29) mEq/L BUN 6 (6-20) mg/dL Creatinine 0.62 L (0.70-1.30) mg/dL Glucose 115 H (70-105) mg/dL Calcium 8.5 L (8.6-10.3) mg/dL AST 17 (13-39) Units/L ALT 63 H (7-52) Units/L Alkaline Phosphatase 88 (34-104) Units/L Albumin 3.4 L (3.5-5.7) g/dL Calcium panel 01/26/18 Range/Units 04:51 Calcium 8.5 L (8.6-10.3) mg/dL Albumin 3.4 L (3.5-5.7) g/dL Pituitary panel 01/26/18 Range/Units 04:51 Sodium 143 (136-145) mEq/L Potassium 3.1 L (3.5-5.1) mEq/L Chloride 107 (98-107) mEq/L Carbon Dioxide 29 (23-29) mEq/L BUN 6 (6-20) mg/dL Creatinine 0.62 L (0.70-1.30) mg/dL Glucose 115 H (70-105) mg/dL Calcium 8.5 L (8.6-10.3) mg/dL Adrenal panel 01/26/18 Range/Units 04:51 Sodium 143 (136-145) mEq/L Potassium 3.1 L (3.5-5.1) mEq/L Chloride 107 (98-107) mEq/L Carbon Dioxide 29 (23-29) mEq/L BUN 6 (6-20) mg/dL Creatinine 0.62 L (0.70-1.30) mg/dL Glucose 115 H (70-105) mg/dL Calcium 8.5 L (8.6-10.3) mg/dL Total Bilirubin 0.5 (0.3-1.0) mg/dL AST 17 (13-39) Units/L ALT 63 H (7-52) Units/L Alkaline Phosphatase 88 (34-104) Units/L Albumin 3.4 L (3.5-5.7) g/dL - Attending Attestation I examined this patient and my medical decision-making was reviewed with the Resident Physician. I agree with the documented findings, disposition and treatment plan as described except to the extent set forth below.
--- NOTE | 2018-01-26 10:12 | Gastroenterology Consult Note ---
<Marleni Hammond M - Last Filed: 01/27/18 08:05> Date of Encounter: 01/27/18 Time of Encounter: 09:20 - Assessment and plan (1) Common bile duct filling defect, non-specific Status: Acute Assessment and plan: 52 year old who is status post cholecystectomy on 01/23/18. Intra-operative cholangiogram showed filling defect of the common bile duct. Lfts remain normal , will proceed with EUS and possible ERCP today to rule out mass vs choledocholithiasis. Risks and benefits discussed with pt including pancreatitis , infection and bleeding and he verbalizes understanding and is in agreement. - Time Spent With Patient Total time spent is greater than 50% in coordination of care (as documented) at patient's floor/unit and/or counseling patient: GI History of Present Illness - Data of Consult Patient: new to practice Consult date: 01/26/18 Requesting Physician: Yajaira Negrete MD - Consult Narrative Reason for consult: CBD filling defect History of present illness: Mr. Beaslye is a 52 year old male who presented to [facility] on 01/22/18 with complaints of RUQ abdominal pain, sharp. Patient has had similar episodes of pain over the last 8 months but they usually last less than 2 hours. This time his pain was unrelenting pain which brought him to ED. He has nausea but no emesis. Patient has had pancreatitis in the past and does state this pain is similar to that episode which concerned him and is also why he presented to the ed. Patient denies alcohol use. Status post cholecystectomy 01/23, IOP showed filling defect in the CBD. LFTs are normal. He denies RUQ pain, nausea or vomiting, he states he just has soreness at the incision sites. He had BM on Friday denies any melena or hematachezia. He denies blood thinners, coronary stents or pacemaker. Colon: 03/01 5 polyps hyperplastic and tubular adenomas NSAIDS/Anticoagulants: none Past Med Surg Social Fam HX - Past Medical History Medical history: diabetes, GERD, other (history pancreatitis) Psychiatric history: no psych history - Past Surgical History Surgical History: herniorrhaphy ( RIHR, UHR), orthopedic, other (bilateral shoulder surgery), other (colonoscopy) - Social History Smoking Status: Current every day smoker Smokeless Tobacco Status: No Alcohol use: rarely Drug use: none Review of Systems: GI: as per [place] GENERAL: denies fever or chills EYES: denies yellow discoloration ENT: denies pain with swallowing or difficulty swallowing CARDIO: denies chest pain, palpitations RESP: No Shortness of breath with exertion : denies change in color of urine NEURO: denies any weakness HEME: Denies any bruising MS: denies joint pain, joint swelling or back pain. DERM: denies rash or itching PSYCH: Denies history of anxiety or depression - Constitutional Vitals: Temp Pulse Resp BP Pulse Ox 97.8 F 52 18 133/76 98 01/26/18 06:42 01/26/18 06:42 01/26/18 06:42 01/26/18 06:42 01/26/18 06:42 Exam: CONSTITUTIONAL:~alert, no acute distress.~HEAD:~normocephalic.~EYES:~no jaundice.~NECK:~no obvious swelling.~HEART:~regular rate and rhythm, no murmurs. ~LUNGS:~bilateral good air entry.~ABDOMEN:~non distended, soft, tender, laproscopic incision sites with steri strips dry and intact, no masses pulpable , no organomegaly.~RECTAL EXAM:~Deferred.~EXTREMITIES:~no clubbing, cyanosis or edema.~SKIN:~no stigmata of chronic liver disease.~NEUROLOGIC:~no obvious focal defect.~~~~ Results - Labs CBC & Chem 7: 01/26/18 04:51 01/26/18 04:51 Labs: Last Result Calcium 8.5 mg/dL (8.6-10.3) L 01/26/18 04:51 Triglycerides 129 mg/dL (< 150) 01/20/18 04:52 Entire Visit Hgb 11.0 g/dL (12.9-16.9) L 01/26/18 04:51 Hct 31.7 % (37.5-50.1) L 01/26/18 04:51 Total Bilirubin 0.5 mg/dL (0.3-1.0) 01/26/18 04:51 AST 17 Units/L (13-39) 01/26/18 04:51 ALT 63 Units/L (7-52) H 01/26/18 04:51 Amylase 178 Units/L (29-103) H 01/21/18 05:25 Lipase 5 Units/L (11-82) L 01/24/18 05:21 - Impressions Impressions Cholangiogram,Operative 01/23/18 15:58 IMPRESSION: Question small rounded filling defect within the ampullary portion of the common bile duct concerning for retained calculus. D/ / 01/23/2018 18:34:04 Daniel Vasques MD / [email or web address] Interpreting Provider: Daniel Vasques MD Consult Discharge Plan - Plan Instructions: Pancreatitis (DC), Laparoscopic Cholecystectomy (DC) Additional Instructions: No lifting more than 20 pounds for 2 weeks. Okay to take a shower in 24 hours. No tub baths or pools for 1 week. Okay to ride in the car wearing a seatbelt and climb steps. No driving until off narcotics for 24 hours and able to react safely Remove Steri-Strips in 1 week Do not take pain medicine/narcotics on an empty stomach it will likely cause nausea and possibly vomiting. If pain medication is too strong okay to break in half Referrals: Yajaira Negrete MD [Partnered Physician] - 02/05/18 8:55 am Austyn Marcano CNP [Primary Care Provider] - Prescriptions: OxyCODONE/APAP 5/325 [Percocet 5/325 MG] 1 each PO Q6HR PRN 5 Days #20 tablet PRN Reason: Pain Docusate [Colace] 100 mg PO BID #30 capsule <Claudia Diaz - Last Filed: 01/29/18 09:08> Date of Encounter: 01/27/18 Time of Encounter: 12:00 - Time Spent With Patient Total time spent is greater than 50% in coordination of care (as documented) at patient's floor/unit and/or counseling patient: GI History of Present Illness - Data of Consult Requesting Physician: Yajaira Negrete MD - Consult Narrative History of present illness: Mr. Beasley is a 52 year old male - Constitutional Vitals: Temp Pulse Resp BP Pulse Ox 98.4 F 52 18 124/79 95 01/26/18 10:53 01/26/18 13:23 01/26/18 13:23 01/26/18 13:23 01/26/18 13:23 Results - Labs CBC & Chem 7: 01/26/18 04:51 01/26/18 04:51 Labs: Last Result Calcium 8.5 mg/dL (8.6-10.3) L 01/26/18 04:51 Triglycerides 129 mg/dL (< 150) 01/20/18 04:52 Entire Visit Hgb 11.0 g/dL (12.9-16.9) L 01/26/18 04:51 Hct 31.7 % (37.5-50.1) L 01/26/18 04:51 Total Bilirubin 0.5 mg/dL (0.3-1.0) 01/26/18 04:51 AST 17 Units/L (13-39) 01/26/18 04:51 ALT 63 Units/L (7-52) H 01/26/18 04:51 Amylase 178 Units/L (29-103) H 01/21/18 05:25 Lipase 5 Units/L (11-82) L 01/24/18 05:21 - Attending Attestation I have personally performed a face to face evaluation on this patient. I have reviewed and agree with the care plan. History and Exam by me shows: Patient seen. Patient status post color surgery now with IOC concerning for abscess possible stone at the ampullary region. Recommendation: EUS and if positive for stone then ERCP
[2018-01-26] MEDS ORDERED: *HR* Propofol 200 MG/20 ML VIAL IVP ONE ×3 (10:57→13:15)
[2018-01-26] MEDS ORDERED: *HR* FentaNYL (PF) 100 MCG/2 ML VIAL ONE (10:57)
[2018-01-26] MEDS ORDERED: *HR* Succinylcholine 200 MG/10 ML VIAL IVP ONE (11:01)
[2018-01-26] MEDS ORDERED: Lidocaine -MPF 4% 5 ML AMPUL ONE (11:01)
[2018-01-26] MEDS ORDERED: *HR* OxyCODONE Immed Rel 5 MG TABLET PO PRN (13:19)
[2018-01-26] MEDS ORDERED: *HR* HYDROmorphone 2 MG TABLET PO PRN (13:19)
[2018-01-26] MEDS ORDERED: MORPHINE SUL Oral CONC 10 MG/0.5 ML ORAL.SYG SL PRN (13:19)
[2018-01-26] MEDS ORDERED: Ondansetron 4 MG/2 ML VIAL IVP ONE (13:19)
[2018-01-26] MEDS ORDERED: Albuterol 2.5 MG/3 ML NEBULIZER ONE (13:19)
--- NOTE | 2018-01-26 13:21 | Anesthesia Evaluation PreOp ---
Date of Encounter: 01/26/18 Time of Encounter: 13:15 - Past History Planned Operation: ERCP Cardiac History: HTN, Hyperlipidemia Pulmonary History: Smoker [employer]CH[employer]OLOG[employer] History: Denies Any Significant HX Other Medical History: Diabetes Type II Anesthesia History: No Prior Anesthetic Complications Alcohol Use: rarely Drug use: none Medications and Allergies Metformin HCl [Glucophage] 1,000 mg PO BID 01/20/18 [History] Pregabalin [Lyrica] 100 mg PO TID 01/20/18 [History] Tramadol HCl [Ultram] 50 mg PO QID PRN 01/20/18 [History] 3 Allergy/AdvReac Type Severity Reaction Status Date / Time No Known Allergies Allergy Verified 01/19/18 12:47 - Meds/Allergy Pre-op Review Medications Reviewed: Yes Allergies Reviewed: Yes Beta Blockers on Current Med List: Yes Anesthesia Results - Labs 01/26/18 04:51 01/26/18 04:51 Laboratory Tests 01/26/18 01/26/18 04:51 04:51 Hgb 11.0 L Hct 31.7 L Plt Count 245 Sodium 143 Potassium 3.1 L BUN 6 Creatinine 0.62 L - Imaging EKG: report reviewed (SR) Anesthesia Exam Vital Signs/O2 Sat/Glucose, Most Current Temp Pulse Resp BP Pulse Ox 01/26/18 10:53 98.4 F 54 18 134/84 96 Height: 180 lbs Weight: MN NPO (# of Hours): MN - HEENT Pupil (Motor): Pupils equal, EOMI Mallampati: II Teeth: Normal Oral Opening: Greater than 3 - [employer] TECHNOLOG[employer] LOC: Oriented [employer]CHNOLOG[employer] Motor: Normal RUE, Normal LUE, Normal RLE, Normal LLE, Normal Face [employer]CHNOLOG[employer] Sensory: Normal: RUE, LUE, RLE, LLE, Face - Cardiac Rhythm: Regular Murmur: None JVD: No Carotid Bruit: No - Pulmonary Breath Sounds: bilateral Clear Respiratory Effort: Symmetrical Anesthesia Assess/Plan ASA Score: 2 Modified Mat Scale for Level of Consciousness: Cooperative, oriented, and tranquil Anesthetic Plan: General Monitoring Plan: Standard Monitors Recovery Plan: PACU (Discussed GA, agrees to proceed)
[2018-01-26 13:25] VITALS: BP 124/79
[2018-01-26] MEDS ORDERED: Albuterol 2.5 MG/3 ML NEBULIZER IH ONE (13:25)
[2018-01-26] MEDS ORDERED: Tetracaine/Benzocaine/Butamben 200MG/SPRAY (100SPY/BOT) MM ONE (13:45)
--- NOTE | 2018-01-26 14:43 | Discharge Summary ---
<Yajaira Negrete - Last Filed: 01/26/18 14:40> Orders not resulted at time of discharge: Pending orders 01/23/18 18:37 Surgical Pathology [PTH] Routine Date of Encounter: 01/26/18 Time of Encounter: 12:00 - Discharge Diagnosis (1) Gallstone pancreatitis Priority: Primary Status: Acute (2) DVT prophylaxis Priority: Secondary Status: Acute (3) Diabetes mellitus Priority: Secondary Status: Acute Qualifiers: Diabetes mellitus type: type 2 Diabetes mellitus usp insulin use: without usp use Diabetes mellitus complication status: without complication Qualified Code(s): E11.9 - Type 2 diabetes mellitus without complications General Surgery Exam Initial Vital Signs Temp Pulse Resp BP Pulse Ox 98.3 F 62 14 122/75 97 01/19/18 19:03 01/19/18 19:03 01/19/18 19:03 01/19/18 19:03 01/19/18 19:03 - General physical appearance well developed, well nourished, no distress - Eyes PERRL, normal ocular movement - ENT normal mucosa, normocephalic - Neck trachea midline - Respiratory normal expansion - Abdomen Abdomen general surgery: Present: bowel sounds present, soft, tender - Integumentary Integumentary general surgery: Present: warm and dry - Neurologic Present: CN 2-12 grossly intact - Musculoskeletal Present: normal posture - Psychiatric Psychiatric general surgery: Present: A&Ox3, speech is normal - Hospital Course Hospital course: Mr. Beasley is a 52 year old male admitted this past Friday for gallstone pancreatitis. Once the pancreatitis resolved patient was taken for an uncomplicated laparoscopic cholecystectomy with intraoperative cholangiograms which demonstrated a likely distal common bile duct stone. GI was consult for ERCP. They performed an EUS which showed no choledocholithiasis present. Throughout his hospital course patient was stable. He tolerated clear diet after his pancreatitis resolved and for the remainder of the hospital stay. Postoperatively pain was controlled with when necessary medication. He is up ambulating well. He is having appropriate bowel and bladder function. He is discharged home in stable condition - Time Spent with Patient Total time spent providing and/or coordinating discharge services: Less than 30 minutes - Discharge Medications Prescriptions: OxyCODONE/APAP 5/325 [Percocet 5/325 MG] 1 each PO Q6HR PRN 5 Days #20 tablet PRN Reason: Pain Docusate [Colace] 100 mg PO BID #30 capsule Home Medications: Metformin HCl [Glucophage] 1,000 mg PO BID 01/20/18 [History] Pregabalin [Lyrica] 100 mg PO TID 01/20/18 [History] Tramadol HCl [Ultram] 50 mg PO QID PRN 01/20/18 [History] Docusate [Colace] 100 mg PO BID #30 capsule 01/26/18 [Rx] OxyCODONE/APAP 5/325 [Percocet 5/325 MG] 1 each PO Q6HR PRN 5 Days #20 tablet [Rx] Allergies/Adverse Reactions: 3 Allergy/AdvReac Type Severity Reaction Status Date / Time No Known Allergies Allergy Verified 01/19/18 12:47 Date of admission: 01/22/18 14:52 Primary care physician: Austyn Marcano CNP Consults: 01/23/18 19:40 Consult to Gastroenterology [CONS] Routine Consulting Provider: Gastroenterology Tere Reason for Consult: choledocholithiasis seen during cholangiograms Call Completed: No Discharging clinician: Yajaira Negrete Anticipated date of discharge: 01/26/18 Labs on day of discharge: Labs from last 24 hours 01/26/18 01/26/18 01/26/18 05:30 04:51 04:51 WBC 6.8 RBC 3.79 L Hgb 11.0 L Hct 31.7 L MCV 83.6 MCH 29.0 MCHC 34.7 RDW 12.9 Plt Count 245 MPV 10.3 Immature Gran % 0.1 Seg Neutrophils % 58.2 Lymphocytes % 27.4 Monocytes % 6.4 Eosinophils % 7.2 Basophils % 0.7 Neutrophils # 3.9 Lymphocytes # 1.9 Monocytes # 0.4 Eosinophils # 0.5 Basophils # 0.1 Sodium 143 Potassium 3.1 L Chloride 107 Carbon Dioxide 29 BUN 6 Creatinine 0.62 L Est GFR ( Amer) > 60 Est GFR (Non-Af Amer) > 60 BUN/Creatinine Ratio 10 Glucose 115 H POC Glucose 106 H Calculated Osmolality 295 Calcium 8.5 L Total Bilirubin 0.5 Direct Bilirubin 0.1 Indirect Bilirubin 0.4 AST 17 ALT 63 H Alkaline Phosphatase 88 Serum Total Protein 5.8 L Albumin 3.4 L Globulin 2.4 Albumin/Globulin Ratio 1.4 01/25/18 01/25/18 23:25 17:25 WBC RBC Hgb Hct MCV MCH MCHC RDW Plt Count MPV Immature Gran % Seg Neutrophils % Lymphocytes % Monocytes % Eosinophils % Basophils % Neutrophils # Lymphocytes # Monocytes # Eosinophils # Basophils # Sodium Potassium Chloride Carbon Dioxide BUN Creatinine Est GFR ( Amer) Est GFR (Non-Af Amer) BUN/Creatinine Ratio Glucose POC Glucose 116 H 82 Calculated Osmolality Calcium Total Bilirubin Direct Bilirubin Indirect Bilirubin AST ALT Alkaline Phosphatase Serum Total Protein Albumin Globulin Albumin/Globulin Ratio - Impressions ITS Impressions Abdomen MRI 01/20/18 07:46 IMPRESSION: Findings of acute pancreatitis are demonstrated. Cholelithiasis with mild gallbladder wall thickening. Pericholecystic fluid is noted, which may be related to acute pancreatitis. The possibility of acute cholecystitis should also be considered. No choledocholithiasis. No biliary dilatation. D/ / Michael Nuñez / Michael Nuñez Interpreting Provider: Michael Nuñez Cholangiogram,Operative 01/23/18 15:58 IMPRESSION: Question small rounded filling defect within the ampullary portion of the common bile duct concerning for retained calculus. D/ / 01/23/2018 18:34:04 Daniel Vasques MD / iliana Interpreting Provider: Daniel Vasques MD - Patient Status Disposition: Home, Self-Care Condition: Good Functional capacity at discharge: independent ambulation Overall status at discharge: patient is progressing back to baseline - Discharge Instructions Instructions: Pancreatitis (DC), Laparoscopic Cholecystectomy (DC) Follow Up With: Austyn Marcano CNP [Primary Care Provider] - Additional Instructions: No lifting more than 20 pounds for 2 weeks. Okay to take a shower in 24 hours. No tub baths or pools for 1 week. Okay to ride in the car wearing a seatbelt and climb steps. No driving until off narcotics for 24 hours and able to react safely Remove Steri-Strips in 1 week Do not take pain medicine/narcotics on an empty stomach it will likely cause nausea and possibly vomiting. If pain medication is too strong okay to break in half - Diet and Activity Activity: increase activity as tolerated Diet: advance to your usual diet, diabetic diet - Attending Attestation I examined this patient and my medical decision-making was reviewed with the Resident Physician. I agree with the documented findings, disposition and treatment plan as described except to the extent set forth below. <ElvavidakalliLincoln - Last Filed: 01/26/18 15:01> Orders not resulted at time of discharge: Pending orders 01/23/18 18:37 Surgical Pathology [PTH] Routine Date of Encounter: 01/26/18 - Discharge Diagnosis (1) S/P laparoscopic cholecystectomy Status: Acute (2) Hypokalemia Status: Acute (3) Diabetes mellitus Status: Acute Qualifiers: Diabetes mellitus type: type 2 Diabetes mellitus usp insulin use: without long term care pharmacist use Diabetes mellitus complication status: without complication Qualified Code(s): E11.9 - Type 2 diabetes mellitus without complications (4) DVT prophylaxis Status: Acute General Surgery Exam Initial Vital Signs Temp Pulse Resp BP Pulse Ox 98.3 F 62 14 122/75 97 01/19/18 19:03 01/19/18 19:03 01/19/18 19:03 01/19/18 19:03 01/19/18 19:03 - Hospital Course Hospital course: Mr. Beasley is a 52 year old male - Time Spent with Patient Total time spent providing and/or coordinating discharge services: Date of admission: 01/22/18 14:52 Primary care physician: Austyn Marcano CNP Consults: 01/23/18 19:40 Consult to Gastroenterology [CONS] Routine Consulting Provider: Gastroenterology Tere Reason for Consult: choledocholithiasis seen during cholangiograms Call Completed: No Labs on day of discharge: Labs from last 24 hours 01/26/18 01/26/18 01/26/18 05:30 04:51 04:51 WBC 6.8 RBC 3.79 L Hgb 11.0 L Hct 31.7 L MCV 83.6 MCH 29.0 MCHC 34.7 RDW 12.9 Plt Count 245 MPV 10.3 Immature Gran % 0.1 Seg Neutrophils % 58.2 Lymphocytes % 27.4 Monocytes % 6.4 Eosinophils % 7.2 Basophils % 0.7 Neutrophils # 3.9 Lymphocytes # 1.9 Monocytes # 0.4 Eosinophils # 0.5 Basophils # 0.1 Sodium 143 Potassium 3.1 L Chloride 107 Carbon Dioxide 29 BUN 6 Creatinine 0.62 L Est GFR ( Amer) > 60 Est GFR (Non-Af Amer) > 60 BUN/Creatinine Ratio 10 Glucose 115 H POC Glucose 106 H Calculated Osmolality 295 Calcium 8.5 L Total Bilirubin 0.5 Direct Bilirubin 0.1 Indirect Bilirubin 0.4 AST 17 ALT 63 H Alkaline Phosphatase 88 Serum Total Protein 5.8 L Albumin 3.4 L Globulin 2.4 Albumin/Globulin Ratio 1.4 01/25/18 01/25/18 23:25 17:25 WBC RBC Hgb Hct MCV MCH MCHC RDW Plt Count MPV Immature Gran % Seg Neutrophils % Lymphocytes % Monocytes % Eosinophils % Basophils % Neutrophils # Lymphocytes # Monocytes # Eosinophils # Basophils # Sodium Potassium Chloride Carbon Dioxide BUN Creatinine Est GFR ( Amer) Est GFR (Non-Af Amer) BUN/Creatinine Ratio Glucose POC Glucose 116 H 82 Calculated Osmolality Calcium Total Bilirubin Direct Bilirubin Indirect Bilirubin AST ALT Alkaline Phosphatase Serum Total Protein Albumin Globulin Albumin/Globulin Ratio - Impressions ITS Impressions Abdomen MRI 01/20/18 07:46 IMPRESSION: Findings of acute pancreatitis are demonstrated. Cholelithiasis with mild gallbladder wall thickening. Pericholecystic fluid is noted, which may be related to acute pancreatitis. The possibility of acute cholecystitis should also be considered. No choledocholithiasis. No biliary dilatation. D/ / Michael Nuñez / Michael Nuñez Interpreting Provider: Michael Nuñez Cholangiogram,Operative 01/23/18 15:58 IMPRESSION: Question small rounded filling defect within the ampullary portion of the common bile duct concerning for retained calculus. D/ / 01/23/2018 18:34:04 Daniel Vasques MD / wilma Interpreting Provider: Daniel Vasques MD
== END 2018-01-26 17:15 | disposition home or self-care (01) | DRG 418 ==
LOC: 3ANU
PROVIDERS: ADMIT Nurse Practitioner Family; ATTEND Surgery
PROC: ENDOEUS (2018-01-26 13:00)